=== PATIENT | male | born 1965 | race Caucasian/White ===

== ENCOUNTER 2016-09-11 19:04 | Inpatient (IN) | payer MEDICAID ==
[~2016-09-11] VITALS: Ht 182.9 cm; Wt 108.9 kg
[2016-09-11 19:08] VITALS: BP 103/46
[2016-09-11] MEDS ORDERED: ASPIRIN 325 MG TAB PO ONE (19:15)
--- NOTE | 2016-09-11 19:19 | NUR ---
AMBULATED TO ER BED 3
[2016-09-11] MEDS ORDERED: NACL 0.9% 250 ML IV ONE (19:50)
[2016-09-11] MEDS ORDERED: MORPHINE SULFATE 2 MG/ML SYR IVP ONE (19:50)
[2016-09-11] MEDS ORDERED: ONDANSETRON 4 MG/2 ML VIAL IVP ONE (19:50)
--- NOTE | 2016-09-11 19:52 | NUR ---
REPEAT EKG DONE AT BEDSIDE
--- NOTE | 2016-09-11 20:18 | NUR ---
PT RESTING COMFORTABLY AT THIS TIME. MEDS GIVEN, NO ACUTE DISTRESS AT THIS TIME.
--- NOTE | 2016-09-11 21:25 | NUR ---
ADMITTED 50 YEAR OLD MALE FROM ER. PT ARRIVED TO UNIT VIA GURNEY. PT AAOX4. PT STABLE. VS STABLE. PT HAS IV TO RIGHT AC G 20; ASYMPTOMATIC, PATENT AND INTACT. PT DENIES DISCOMFORT AT THIS TIME. ORIENTED PT TO ROOM AND SURROUNDINGS AND USE OF CALL LIGHT. EXPLAINED PLAN OF CARE TO PT AND HE VERBALIZES UNDERSTANDING. PT PLACED ON SAFETY PRECAUTIONS. WILL FOLLOW UP ON DOCTOR'S ORDERS. CALL LIGHT WITHIN REACH.
--- NOTE | 2016-09-11 21:31 | NUR ---
Patient will be admitted to care of DR SHAY. Admited to TELE. Will go to room 124. Belongings list completed. Report to SOURAV FELIX.
[2016-09-11] MEDS ORDERED: HYDROcodone/APAP 5/325 MG 1 TAB TAB PO PRN (22:25)
[2016-09-11] MEDS ORDERED: ONDANSETRON 4 MG/2 ML VIAL IVP PRN (22:25)
[2016-09-11] MEDS ORDERED: ACETAMINOPHEN 325 MG TAB PO PRN (22:25)
[2016-09-11] MEDS ORDERED: HEPARIN PER PHARMACY MC PRN (22:30)
[2016-09-11] MEDS: NACL 0.9% 1,000 ML IV SCH (23:03)
--- NOTE | 2016-09-11 23:10 | NUR ---
PT MEDICATED FOR PAIN, WILL CONTINUE TO MONITOR PT.
--- NOTE | 2016-09-11 23:25 | NUR ---
STATED HEPARIN ON PT ORDERED. PT STABLE, WILL CONTINUE TO MONITOR PT.
[2016-09-11] MEDS: hePARIN / DEXT 5% PREMIX 250 ML IV SCH (23:28)
[2016-09-12] VITALS: BP 112/71
--- NOTE | 2016-09-12 01:25 | NUR ---
PT TOLERATING HEPARIN WELL, PT STABLE. WILL CONTINUE TO MONITOR PT.
--- NOTE | 2016-09-12 03:21 | NUR ---
PT TALKING ON HIS CELL PHONE. PT STABLE, WILL CONTINUE TO MONITOR PT.
--- NOTE | 2016-09-12 03:48 | NUR ---
DISABILITY SPECIALIST AT BEDSIDE TO DRAW LABS. PT STABLE, WILL CONTINUE TO MONITOR PT.
[2016-09-12 04:00] VITALS: BP 137/110
--- NOTE | 2016-09-12 05:30 | NUR ---
PT WATCHING VIDEOS ON HIS CELL PHONE. PT JERRY WILL CONTINUE TO MONITOR PT.
--- NOTE | 2016-09-12 07:00 | NUR ---
CALL RESIDENT TO GET AN ORDER FOR DIET. DR. GRACIA ORDERED CARDIAC DIET FOR PT, WILL CONTINUE TO MONITOR.
--- NOTE | 2016-09-12 07:31 | NUR ---
ENDORSED PT IN STABLE CONDITION TO RN HOLLEY FOR CONTINUITY OF CARE.
--- NOTE | 2016-09-12 07:35 | NUR ---
RECEIVED REPORT FROM ELVIRA BENJAMIN FOR CONTINUITY OF CARE. PATIENT AWAKE ,A/OX4 NO S/S OF RESP DISTRESS NOTED . NO COMPLAIN OF CHEST PAIN AT THIS TIME. ABLE TO MAKE NEEDS KNOWN. IV SITE RIGHT FOREARM GAUGE 20 INTACT AND PATENT. IVF INFUSING WELL . PLAN OF CARE DISCUSSED WITH THE PATIENT VITALS STABLE WILL CONTINUE TO MONITOR.
[2016-09-12 08:00] VITALS: BP 111/73
--- NOTE | 2016-09-12 08:05 | NUR ---
APTT RESULT 67.8 PER HEPARIN PROTOCOL NO CHANGE ON THE RATE, WILL F/U WITH THE NEXT PTT.
--- NOTE | 2016-09-12 08:15 | NUR ---
PATIENT HAS BEEN SCREENED AND CATEGORIZED MODERATE NUTRITION RISK. PATIENT WILL BE SEEN WITHIN 3-5 DAYS OF ADMISSION. 09/14/16-09/16/[address]
[2016-09-12] MEDS: ECOTRIN 81 MG TABEC PO SCH (08:55)
[2016-09-12] MEDS: DOCUSATE SODIUM 100 MG GELCAP PO SCH (08:56)
[2016-09-12] MEDS: LISINOPRIL 10 MG TAB PO SCH (08:57)
[2016-09-12] MEDS ORDERED: METOPROLOL 25 MG TAB PO SCH (09:00)
--- NOTE | 2016-09-12 09:00 | NUR ---
DUE MEDS GIVEN TOLERATED WELL . PTT RESULT 67.8 NO CHANGE ON HEPARIN RATE PER HEPARIN PROTOCOL
--- NOTE | 2016-09-12 10:00 | NUR ---
CANCEL VQ SCAN PER MD BECAUSE OF CT CHEST ANGIO WITH IV CONTRAST
[2016-09-12] MEDS ORDERED: FUROSEMIDE 20 MG/2 ML VIAL IVP SCH (10:02)
[2016-09-12] MEDS: NACL 0.9% 1,000 ML IV SCH ×2 (10:52→14:19)
--- NOTE | 2016-09-12 11:00 | NUR ---
PATIENT LEFT FOR CT CHEST ANGIO STABLE CONDITION.
--- NOTE | 2016-09-12 11:30 | NUR ---
COMPLAIN OF CHEST PAIN MEDICATED WITH MORPHINE 2MG IVP
[2016-09-12] MEDS ORDERED: NITROGLYCERIN 0.4 MG TAB SL PRN (11:55)
[2016-09-12 11:59] VITALS: BP 99/66
[2016-09-12] MEDS: MORPHINE SULFATE 2 MG/ML SYR IVP PRN (12:05)
--- NOTE | 2016-09-12 12:41 | NUR ---
RECEIVED CRITICAL LAB VALUE PTT 59 .3 FOLLOW HEPARIN PROTOCOL ,NO CHANGE ON THE RATE. ANOTHER CRITICAL VALUE TROPONIN 0.167 IS TRENDING DOWN REPORTED TO DR GRACIA (RESIDENT)
--- NOTE | 2016-09-12 13:00 | NUR ---
VOIDED 250ML DARK KENN COLOR URINE , BLADDER SCANNER DONE POST VOID SHOWED 20ML
[2016-09-12] MEDS ORDERED: ALBUTEROL SULFATE/IPRATROPIU 3 ML SOL IH PRN (13:35)
[2016-09-12] MEDS ORDERED: DEXTROSE 50% 50 ML SYR IVP PRN (13:40)
[2016-09-12] MEDS: ALBUTEROL SULFATE/IPRATROPIU 3 ML SOL IH SCH ×2 (14:16→19:45)
--- NOTE | 2016-09-12 14:23 | NUR ---
PT IS UNABLE TO DO IS AT THIS TIME WILL TRY LATER
[2016-09-12] MEDS ORDERED: POTASSIUM CHLORIDE 10 MEQ TABER PO SCH (14:40)
[2016-09-12] MEDS: hePARIN / DEXT 5% PREMIX 250 ML IV SCH (15:03)
[2016-09-12 16:00] VITALS: BP 119/76
--- NOTE | 2016-09-12 16:24 | NUR ---
RELAXED , NO DISTRESS NOTED VITALS STABLE AT THIS TIME.
[2016-09-12] MEDS: BLOOD GLUCOSE MONITORING 1 DEV DEV FS SCH ×2 (17:24→20:47)
[2016-09-12] MEDS: INSULIN ASPART SLIDING SCALE 100 UNITS/ML VIAL SUBQ PRN ×2 (17:25→20:44)
[2016-09-12] MEDS: CARVEDILOL 3.125 MG TAB PO SCH (17:25)
--- NOTE | 2016-09-12 18:25 | NUR ---
BLOOD SUGAR 163 SLIDING SCALE COVERAGE 3 UNITS NOVOLOG GIVEN. HEPARIN DRIP RUNNING AT 16ML/HR.
--- NOTE | 2016-09-12 19:30 | NUR ---
RECEIVED REPORT FROM DAY NURSEHOLLEY. PATIENT RESTING IN BED, WATCHING TELEVISION. NO RESPIRATORY DISTRESS, SOB, OR DISCOMFORT. INITIAL ASSESSMENT AND BODY CHECK DONE. PATIENT IS AOX4, SKIN IS INTACT, RASHES NOTED TO BLE AND FOREHEAD. PATIENT HAS IV ACCESS TO RIGHT WRIST 22G, PATENT. PATIENT HAS HEPARIN DRIP INFUSING AT 1600 UNITS, PATIENT TOLERATING WELL, NO SIGNS OF ACTIVE BLEEDING. DISCUSSED PLAN OF CARE, MEDICATION REGIMENT, AND PAIN MANAGEMENT WITH PATIENT. PATIENT VERBALIZED UNDERSTANDING. PLACED PATIENT ON SAFETY PRECAUTIONS. CALL LIGHT LEFT WITHIN REACH, WILL CONTINUE TO MONITOR.
[2016-09-12 20:00] VITALS: BP 116/67
[2016-09-12] MEDS: SIMVASTATIN 20 MG TAB PO SCH (20:47)
[2016-09-12] MEDS: FUROSEMIDE 20 MG/2 ML VIAL IVP SCH (20:47)
[2016-09-12] MEDS: SODIUM CHLORIDE FLUSH 10 ML SYR IVF SCH (21:31)
--- NOTE | 2016-09-12 22:07 | NUR ---
PATIENT IN BED, WATCHING TELEVISION. STATES BEING FINE. NO RESPIRATORY DISTRESS, SOB, OR DISCOMFORT. CALL LIGHT LEFT WITHIN REACH, WILL CONTINUE TO MONITOR.
[2016-09-13] VITALS: BP 105/66
--- NOTE | 2016-09-13 00:51 | NUR ---
PATIENT IN BED, SLEEPING. NO RESPIRATORY DISTRESS, SOB, OR DISCOMFORT. CALL LIGHT LEFT WITHIN REACH, WILL CONTINUE TO MONITOR.
--- NOTE | 2016-09-13 03:12 | NUR ---
PATIENT ASLEEP. NO RESPIRATORY DISTRESS, SOB, OR DISCOMFORT. CALL LIGHT LEFT WITHIN REACH, WILL CONTINUE TO MONITOR.
[2016-09-13 04:00] VITALS: BP 112/69
[2016-09-13] MEDS: hePARIN / DEXT 5% PREMIX 250 ML IV SCH (04:58)
[2016-09-13] MEDS: SODIUM CHLORIDE FLUSH 10 ML SYR IVF SCH ×3 (05:42→21:02)
--- NOTE | 2016-09-13 06:04 | NUR ---
PATIENT SLEEPING. NO RESPIRATORY DISTRESS, SOB, OR DISCOMFORT. CALL LIGHT LEFT WITHIN REACH, WILL CONTINUE TO MONITOR.
[2016-09-13] MEDS: BLOOD GLUCOSE MONITORING 1 DEV DEV FS SCH ×4 (06:31→21:02)
[2016-09-13] MEDS: INSULIN ASPART SLIDING SCALE 100 UNITS/ML VIAL SUBQ PRN ×3 (06:32→20:59)
[2016-09-13] MEDS: ALBUTEROL SULFATE/IPRATROPIU 3 ML SOL IH SCH ×3 (07:05→19:57)
--- NOTE | 2016-09-13 07:09 | NUR ---
REPORT GIVEN TO DAY NURSE, TAMARA (ORIENTEE). PATIENT RESTING IN BED, STABLE. NO RESPIRATORY DISTRESS, SOB, OR DISCOMFORT. ALL NEEDS ATTENDED TO DURING SHIFT, CALL LIGHT LEFT WITHIN REACH.
--- NOTE | 2016-09-13 07:10 | NUR ---
RECEIVED PT FROM Jac MAHAN RN ASLEEP BUT EASILY AWAKEN. AAOX4, WITH IV ACCESS ON R WRIST 22G ON HEPARIN DRIP INFUSING WELL, SKIN INTACT, NO S/S OF RESPIRATORY DISTRESS NOTED. DISCUSSED PLAN OF CARE, PT VERBALIZED UNDERSTANDING. CALL LIGHT WITHIN REACH, WILL CONTINUE TO MONITOR.
[2016-09-13 08:00] VITALS: BP 105/78
[2016-09-13] MEDS: CARVEDILOL 3.125 MG TAB PO SCH ×2 (08:00→16:41)
[2016-09-13] MEDS: DOCUSATE SODIUM 100 MG GELCAP PO SCH (08:17)
[2016-09-13] MEDS: ECOTRIN 81 MG TABEC PO SCH (08:18)
--- NOTE | 2016-09-13 08:20 | NUR ---
BREAKFAST SERVED, PT HAS GOOD APPETITE. DUE MEDS GIVEN EXCEPT BP MEDS DUE TO DECREASED BP. PT TOLERATED WELL. CALL LIGHT WITHIN REACH, WILL CONTINUE TO MONITOR.
[2016-09-13] MEDS: FUROSEMIDE 20 MG/2 ML VIAL IVP SCH ×2 (08:21→21:05)
[2016-09-13] MEDS: SPIRONOLACTONE 25 MG TAB PO SCH (08:21)
[2016-09-13] MEDS: LISINOPRIL 10 MG TAB PO SCH (08:22)
[2016-09-13] MEDS ORDERED: FUROSEMIDE 20 MG/2 ML VIAL IVP SCH (09:00)
[2016-09-13] MEDS ORDERED: METOLAZONE 5 MG TAB PO SCH (09:00)
--- NOTE | 2016-09-13 09:50 | NUR ---
HEPARIN DRIP DISCONTINUED.
--- NOTE | 2016-09-13 11:30 | NUR ---
PT COMPLAINED OF CHEST PAIN 5/10. OFFERED PAIN MEDS BUT PT REFUSED.
[2016-09-13 12:00] VITALS: BP 128/87
--- NOTE | 2016-09-13 12:47 | NUR ---
PT SLEEPING BUT EASILY AWAKEN. DR ELIZALDE IN THE ROOM WITH THE PT. NO S/S OF DISTRESS. CALL LIGHT WITHIN REACH, WILL CONTINUE TO MONITOR. Addendum: 09/13/16 at 1249 by Manuela Aguilera RN INFORMED DR ELIZALDE OF PT CHEST PAIN AND REFUSAL OF PAIN MED.
--- NOTE | 2016-09-13 13:52 | NUR ---
PT ASLEEP BUT EASILY AWAKEN. ALL NEEDS MET AT THIS TIME, CALL LIGHT WITHIN REACH, WILL CONTINUE TO MONITOR.
--- NOTE | 2016-09-13 14:48 | NUR ---
DR GLEASON AT NURSES' STATION
[2016-09-13 16:00] VITALS: BP 112/48
--- NOTE | 2016-09-13 16:00 | NUR ---
VS TAKEN, REMAINS STABLE. PT STATED HE HAS CHEST PAIN BUT REFUSED PAIN MED, STATED "IT HAS ALWAYS BEEN LIKE THIS".
--- NOTE | 2016-09-13 16:48 | NUR ---
PT AWAKE LYING ON BED WATCHING TV WITH AT BEDSIDE. ALL NEEDS MET AT THIS TIME. CALL LIGHT WITHIN REACH, WILL CONTINUE TO MONITOR.
--- NOTE | 2016-09-13 18:19 | NUR ---
PT AWAKE LYING ON BED WATCHING TV. NO S/S OF DISTRESS NOTED. ALL NEEDS MET AT THIS TIME. CALL LIGHT WITHIN REACH, WILL CONTINUE TO MONITOR.
--- NOTE | 2016-09-13 18:50 | NUR ---
RIGHT WRIST IV OUT, INSERTED NEW IV ON RIGHT HAND 22G PATENT AND INTACT.
--- NOTE | 2016-09-13 19:20 | NUR ---
ENDORSED PT TO SOURAV CAREY IN STABLE CONDITION FOR CONTINUITY OF CARE.
--- NOTE | 2016-09-13 19:25 | NUR ---
RECEIVED PT FROM FERNANDEZ RN PT AAOX4 AMBULATORY IV TKO ON RT HAND INFUSING WELL ;, ON TELEMETRY SR BBB COMPLALINT OF CHEST PAIN MOD PAIN MEDIC WILL BE GIVEN , RELATIVES AT BED SIDE
[2016-09-13] MEDS: MORPHINE SULFATE 2 MG/ML SYR IVP PRN (19:30)
[2016-09-13 20:00] VITALS: BP 143/49
[2016-09-13] MEDS: SIMVASTATIN 20 MG TAB PO SCH (21:04)
--- NOTE | 2016-09-13 21:30 | NUR ---
BLOOD SUGAR TEST 185 COVERAGE WITH 3 UNITS REG INSULIN, HS SNACK IS GIVEN NOT DISTRESS NOTED
[2016-09-14] VITALS: BP 106/51
--- NOTE | 2016-09-14 | NUR ---
PT SLEEPING WELL NOT DISTRESS NOTED ON TELEMETRY SR BBB VOIDING WELL
--- NOTE | 2016-09-14 03:49 | NUR ---
SPONGE BATH GIVEN , LINEN CHANGED ON TELEMETRY SR BBB NOT DISTRESS NOTED,VOIDING WELL YELOW URINE
[2016-09-14 04:00] VITALS: BP 126/55
[2016-09-14] MEDS: SODIUM CHLORIDE FLUSH 10 ML SYR IVF SCH (05:57)
[2016-09-14] MEDS: BLOOD GLUCOSE MONITORING 1 DEV DEV FS SCH (06:06)
--- NOTE | 2016-09-14 06:07 | NUR ---
BLOOD SUGAR TEST 100 NOT COVERAGE PT REMAINSTABLE DENIES ANY PAIN OR DISCOMFORT ON TELMETRY SR BBB
--- NOTE | 2016-09-14 07:00 | NUR ---
PT ALERT AND ORIENTED X4. BREATHING EVENLY AND UNLABORED. NO SIGNS OF ACUTE DISTRESS. SKIN IS WARM AND DRY. NO SIGNS OF ANY BOWEL OR BLADDER DISCOMFORT. DENIES OF ANY PAIN OR DISCOMFORT. ALL NEEDS ATTENDED, SAFETY PRECAUTIONS MAINTAINED. CALL LIGHT WITHIN REACH.
[2016-09-14] MEDS ORDERED: FUROSEMIDE 40 MG/4 ML VIAL IVP SCH (07:22)
[2016-09-14] MEDS: ALBUTEROL SULFATE/IPRATROPIU 3 ML SOL IH SCH (07:31)
[2016-09-14 07:45] VITALS: BP 120/83
[2016-09-14] MEDS: CARVEDILOL 3.125 MG TAB PO SCH (08:26)
[2016-09-14] MEDS: LISINOPRIL 10 MG TAB PO SCH (08:26)
[2016-09-14] MEDS: SPIRONOLACTONE 25 MG TAB PO SCH (08:26)
[2016-09-14] MEDS: ECOTRIN 81 MG TABEC PO SCH (08:26)
[2016-09-14] MEDS: DOCUSATE SODIUM 100 MG GELCAP PO SCH (08:26)
[2016-09-14] MEDS ORDERED: LISINOPRIL10 M1 PO (10:05)
[2016-09-14] MEDS ORDERED: ASPIRIN ADULT L81 M2 PO (10:05)
[2016-09-14] MEDS ORDERED: SIMVASTATIN20 M1 PO (10:05)
[2016-09-14] MEDS ORDERED: ALDACTONE25 M1 PO (10:05)
[2016-09-14] MEDS ORDERED: CARVEDILOL3.125 MG PO (10:05)
[2016-09-14] MEDS ORDERED: LASIX10 MG/M2 PO (10:05)
[2016-09-14] MEDS ORDERED: HYDROcodone/APAP 7.5/325 MG 1 TAB PO SCH (10:24)
--- NOTE | 2016-09-14 11:10 | NUR ---
PT ALERT AND RESPONSIVE, NO SIGNS OF ACUTE DISTRESS. RECEIVED ORDER DECEMBER D/C HOME TODAY. EDUCATED TO F/U WITH PCP IN 1 WEEK. REVIEWED DISCHARGE PRESCRIPTIONS INCITATIONS AND SIDE EFFECTS. PT. VERBALIZED UNDERSTANDING. IV LINE, WRIST BAND AND TELE LEADS REMOVED. PERSONAL BELONGINGS WITH PT UPON DISCHARGE. WILL GO HOME VIA YELLOW CAB. ESCORTED TO FRONT LOBBY.
== END 2016-09-14 11:10 | disposition home or self-care (01) | DRG 190 ==
LOC: MED 19:04 → MTU 20:57
PROVIDERS: ADMIT Student in an Organized Health Care Education/Training Program; ATTEND Student in an Organized Health Care Education/Training Program
DX: I21.4 Non-ST elevation (NSTEMI) myocardial infarction (principal); N17.0 Acute kidney failure with tubular necrosis; I50.43 Acute on chronic combined systolic (congestive) and diastolic (congestive) heart failure; E44.0 Moderate protein-calorie malnutrition; E11.65 Type 2 diabetes mellitus with hyperglycemia; E87.1 Hypo-osmolality and hyponatremia; I42.9 Cardiomyopathy, unspecified; D68.69 Other thrombophilia; M94.0 Chondrocostal junction syndrome [Tietze]; E80.6 Other disorders of bilirubin metabolism; R74.0 Nonspecific elevation of levels of transaminase and lactic acid dehydrogenase [LDH]; E78.5 Hyperlipidemia, unspecified; E66.9 Obesity, unspecified; F19.10 Other psychoactive substance abuse, uncomplicated; E02 Subclinical iodine-deficiency hypothyroidism; E83.51 Hypocalcemia; Z71.51 Drug abuse counseling and surveillance of drug abuser; Z91.14 Patient's other noncompliance with medication regimen; Z68.32 Body mass index [BMI] 32.0-32.9, adult; Z98.890 Other specified postprocedural states; Z87.891 Personal history of nicotine dependence; Z80.9 Family history of malignant neoplasm, unspecified

== ENCOUNTER 2016-09-15 16:52 | Emergency (ER) | payer MEDICAID ==
[~2016-09-15] VITALS: Ht 177.8 cm; Wt 108.9 kg
[~2016-09-15 16:52] MED LIST: ALDACTONE25 M1 PO; ASPIRIN ADULT L81 M2 PO; CARVEDILOL3.125 MG PO; LASIX10 MG/M2 PO; LISINOPRIL10 M1 PO; SIMVASTATIN20 M1 PO
[2016-09-15 16:58] VITALS: BP 133/59
--- NOTE | 2016-09-15 17:14 | NUR ---
REVIEWED EKG OKAYED TO WAIT IN ER LOBBY FOR AVAILABLE BED----PT A/O X4 FULL CLEAR SPEECH, JOKING WITH STAFF---SKIN DRY PINK WARM TO TOUCH---DENIES SOB AT THIS TIME.
--- NOTE | 2016-09-15 19:25 | NUR ---
PATIENT LEFT WITHOUT BEING SEEN BY DR. TAN. NO FURTHER CARE PROVIDED FOR PATIENT.
== END 2016-09-15 19:25 | disposition left against medical advice (07) ==
LOC: MED 16:52
DX: R07.89 Other chest pain (principal); Z53.21 Procedure and treatment not carried out due to patient leaving prior to being seen by health care provider

== ENCOUNTER 2016-09-28 17:35 | Inpatient (IN) | payer MEDICAID ==
[~2016-09-28] VITALS: Ht 172.7 cm; Wt 108.4 kg
[2016-09-28 17:49] VITALS: BP 133/78
[2016-09-28] MEDS ORDERED: NACL 0.9% 1,000 ML IV ONE (17:50)
[2016-09-28] MEDS ORDERED: ASPIRIN 81 MG TAB.CHEW PO ONE (17:50)
--- NOTE | 2016-09-28 17:58 | NUR ---
PATIENT PRESENTS TO ED WITH LEFT SIDED CP . PT STATES PAIN X4 DAYS WORSE TODAY WITH SOB . DENIES N/V/D; SKIN IS PINK/WARM/DRY; AAOX4 WITH EVEN AND STEADY GAIT; LUNGS CLEAR BL; HR EVEN AND REGULAR; PT DENIES ANY FEVER,OR COUGH AT THIS TIME; PATIENT STATES PAIN OF 7/10 AT THIS TIME; VSS; PATIENT POSITIONED FOR COMFORT; HOB ELEVATED; BEDRAILS UP X2; BED DOWN. ER MD MADE AWARE OF PT STATUS. EKG COMPLETED, NOTIFIED--PT TO ROOM AND 02 2L NC PLACED---LABS DRAWN, PLACED ON MONITOR
[2016-09-28] MEDS ORDERED: MORPHINE SULFATE 2 MG/ML SYR IVP ONE (18:10)
[2016-09-28] MEDS ORDERED: AMIODARONE 150 MG in DEXTROSE 5% 100 ML IV ONE (18:10)
[2016-09-28] MEDS ORDERED: NITROGLYCERIN 2% 1 GM PKT TP ONE (18:10)
[2016-09-28] MEDS ORDERED: AMIODARONE 150 MG/3 ML VIAL IV ONE (18:21)
[2016-09-28] MEDS ORDERED: FUROSEMIDE 40 MG/4 ML VIAL IVP ONE (18:40)
--- NOTE | 2016-09-28 18:46 | NUR ---
PT CONTINUES TO HAVE ANTERIOR PRESSURE LIKE NON RADIAITNG PAIN 02/15. PT SLIGHTLY TACYPNIC AT 28BREATHS /MIN. SKIN WARM/DRY. PT WITH OCCASIONAL PVC'S. DR ARRIOLA INFORMED. AMIO BOLUS INFUSING THRU PUMP.
[2016-09-28] MEDS ORDERED: HYDROcodone/APAP 7.5/325 MG 1 TAB PO PRN (19:05)
[2016-09-28] MEDS ORDERED: NITROGLYCERIN 0.4 MG TAB SL PRN (19:05)
[2016-09-28] MEDS ORDERED: ONDANSETRON 4 MG/2 ML VIAL IVP PRN (19:05)
[2016-09-28] MEDS ORDERED: ACETAMINOPHEN 325 MG TAB PO PRN (19:05)
--- NOTE | 2016-09-28 19:13 | NUR ---
REPORT GIVEN TO EDWARD BENJAMIN. UPDATED ON STATUS, LABS AND VITALS.
--- NOTE | 2016-09-28 19:20 | NUR ---
Patient will be admitted to care of DR GROVER. Admited to TELEMETRY. Will go to room 119B. Belongings list completed. Report to SOURAV VANCE.
--- NOTE | 2016-09-28 19:38 | NUR ---
PT TRASFERRED TO TELEMTRY VIA [employer], AIRPLANE ELECTRICAL REPAIRER IN BED. ACCOMPANIED BY ASHVIN LA RN, AND CARRY EMT. PT IN O2 2LT.
[2016-09-28] MEDS: CARVEDILOL 3.125 MG TAB PO SCH (20:25)
[2016-09-28] MEDS: MORPHINE SULFATE 2 MG/ML SYR IVP PRN (20:26)
--- NOTE | 2016-09-28 20:45 | NUR ---
PM MEDS ADMINISTERED, PATIENT TOLERATED WELL, ADMINISTERED MORPHINE PER MD ORDER PT C/O CHEST PAIN, PT REFUSED NITRO TABLETS, STATED THEY GIVE HIM A HEADACHE. CALL LIGHT WITHIN REACH. WILL CONTINUE TO MONITOR.
--- NOTE | 2016-09-28 23:13 | NUR ---
ADMINISTERED NORCO PATIENT STILL COMPLAINING OF PAIN, ALSO ADMINISTERED NITRO STAT SL X2, PATIENT STATES HIS PAIN IS BETTER AND FEELS OKAY NOW, PATIENT IN GOOD SPIRITS, NO DISTRESS, CALL LIGHT WITHIN REACH. WILL CONTINUE TO MONITOR.
[2016-09-29] VITALS: BP 131/65
--- NOTE | 2016-09-29 00:10 | NUR ---
VITAL SIGNS STABLE, PATIENT STATES HIS PAIN HAS NOT GONE AWAY, WILL ADMINISTER MORPHINE PER MD ORDER. CALL LIGHT WITHIN REACH. WILL CONTINUE TO MONITOR.
[2016-09-29] MEDS: MORPHINE SULFATE 2 MG/ML SYR IVP PRN ×4 (00:36→23:35)
--- NOTE | 2016-09-29 02:00 | NUR ---
PATIENT SLEEPING, NO SOB OR SIGN OF DISTRESS, CALL LIGHT WITHIN REACH. WILL CONTINUE TO MONITOR.
--- NOTE | 2016-09-29 03:30 | NUR ---
PATIENT SLEEPING, NO SOB OR SIGN OF DISTRESS, CALL LIGHT WITHIN REACH. WILL CONTINUE TO MONITOR.
[2016-09-29 04:00] VITALS: BP 97/72
--- NOTE | 2016-09-29 04:30 | NUR ---
VITAL SIGNS STABLE, PATIENT RESTING IN BED, PATIENT DENIES PAIN AT THIS TIME, CALL LIGHT WITHIN REACH. WILL CONTINUE TO MONITOR.
--- NOTE | 2016-09-29 06:39 | NUR ---
PATIENT RESTING IN BED, NO SIGN OF DISTRESS, CALL LIGHT WITHIN REACH. WILL CONTINUE TO MONITOR
--- NOTE | 2016-09-29 07:15 | NUR ---
ENDORSED PATIENT TO DAY SHIFT RN AT BEDSIDE, PATIENT IN STABLE CONDITION
--- NOTE | 2016-09-29 07:20 | NUR ---
RECEIVED PATIENT REPORT. PATIENT AWAKE, ALERT, ORIENTED AND AMBULATORY. NO S/S OF DISTRESS NOTED. PATIENT REPORTS OF TOLERABLE CHEST PAIN AT THIS TIME. PATIENT ON 3L O2. NO SOB. PATIENT ON TELE MONITORING. BED LOWERED WITH CALL LIGHT WITHIN REACH. WILL CONTINUE TO MONITOR
[2016-09-29 08:00] VITALS: BP 143/90
[2016-09-29] MEDS: DOCUSATE SODIUM 100 MG GELCAP PO SCH (08:13)
[2016-09-29] MEDS: FAMOTIDINE 20 MG TAB PO SCH (08:13)
[2016-09-29] MEDS: CARVEDILOL 3.125 MG TAB PO SCH ×2 (08:13→20:23)
[2016-09-29] MEDS: SPIRONOLACTONE 25 MG TAB PO SCH (08:14)
--- NOTE | 2016-09-29 08:29 | NUR ---
PATIENT HAS BEEN SCREENED AND CATEGORIZED MODERATE NUTRITION RISK. PATIENT WILL BE SEEN WITHIN 3-5 DAYS OF ADMISSION. 10/01/16-10/03/[address]
[2016-09-29] MEDS ORDERED: ATORVASTATIN 20 MG TAB PO SCH (09:00)
[2016-09-29] MEDS ORDERED: LISINOPRIL 10 MG TAB PO SCH (09:00)
[2016-09-29] MEDS ORDERED: FUROSEMIDE 40 MG/4 ML VIAL IVP SCH (09:00)
[2016-09-29] MEDS ORDERED: ASPIRIN 81 MG TAB.CHEW PO SCH (09:00)
--- NOTE | 2016-09-29 11:00 | NUR ---
PATIENT IN BED, WATCHING TELEVISION. NO S/S OF DISTRESS NOTED
[2016-09-29 12:00] VITALS: BP 110/70
--- NOTE | 2016-09-29 14:00 | NUR ---
PATIENT ASLEEP IN BED. NO S/S OF DISTRESS NOTED
--- NOTE | 2016-09-29 15:00 | NUR ---
PATIENT SEEN BY DR NARAYAN. PATIENT INFORMED ABOUT THE ECHO RESULTS
[2016-09-29 16:00] VITALS: BP 112/67
--- NOTE | 2016-09-29 16:30 | NUR ---
PATIENT INSTRUCTED TO BE NPO AFTER MIDNIGHT FOR US OF THE ABD. PATIENT VERBALIZED UNDERSTANDING
[2016-09-29] MEDS ORDERED: AMIODARONE 200 MG TAB PO SCH (18:30)
--- NOTE | 2016-09-29 19:35 | NUR ---
ENDORSED CONTINUITY OF CARE TO THE NIGHT NURSE. PATIENT IN STABLE CONDITION
[2016-09-29 20:00] VITALS: BP 114/89
[2016-09-29] MEDS: FUROSEMIDE 40 MG/4 ML VIAL IVP SCH (20:24)
--- NOTE | 2016-09-29 20:43 | NUR ---
PM MEDS ADMINISTERED, PATIENT TOLERATED WELL, CALL LIGHT WITHIN REACH. WILL CONTINUE TO MONITOR.
--- NOTE | 2016-09-29 23:42 | NUR ---
PATIENT C/O PAIN. ADMINISTERED MORPHINE PER MD ORDER. WILL CONTINUE TO MONITOR.
[2016-09-30] VITALS: BP 123/68
--- NOTE | 2016-09-30 00:20 | NUR ---
VITAL SIGNS STABLE, NO SOB OR SIGN OF DISTRESS, PATIENT RESTING IN BED. PATIENT STATES HIS PAIN IS A LOT BETTER AND IT IS MANAGEABLE. REMOVED PATIENT'S FOOD AND DRINK PATIENT IS TO BE NPO AFTER MIDNIGHT FOR A COMPLETE ABDOMINAL ULTRASOUND IN THE AM. PATIENT AWARE. CALL LIGHT WITHIN REACH. WILL CONTINUE TO MONITOR.
--- NOTE | 2016-09-30 02:01 | NUR ---
PATIENT SLEEPING IN BED, NO SOB NOTED, CALL LIGHT WITHIN REACH. WILL CONTINUE TO MONITOR.
--- NOTE | 2016-09-30 03:35 | NUR ---
PATIENT SLEEPING, NO SOB OR SIGN OF DISTRESS, CALL LIGHT WITHIN REACH. WILL CONTINUE TO MONITOR.
[2016-09-30 04:00] VITALS: BP 98/59
--- NOTE | 2016-09-30 04:30 | NUR ---
VITAL SIGNS STABLE, PATIENT SITTING UP IN BED, CALL LIGHT WITHIN REACH. WILL CONTINUE TO MONITOR.
--- NOTE | 2016-09-30 06:16 | NUR ---
PATIENT RESTING IN BED, NO SOB OR SIGN OF DISTRESS, CALL LIGHT WITHIN REACH. WILL CONTINUE TO MONITOR.
[2016-09-30] MEDS ORDERED: LEVOTHYROXINE 0.05 MG TAB PO SCH (06:30)
[2016-09-30] MEDS: MORPHINE SULFATE 2 MG/ML SYR IVP PRN (06:51)
--- NOTE | 2016-09-30 07:20 | NUR ---
ENDORSED PATIENT TO DAY SHIFT RN AT BEDSIDE, PATIENT IN STABLE CONDITION, PATIENT RECEIVING ABDOMINAL US.
--- NOTE | 2016-09-30 07:30 | NUR ---
RECEIVED REPORT FROM STEAMBOAT CAPTAIN SOURAV VANCE. PT IS AWAKE, A/O X 4, AMBULATORY. RH 20G IV INTACT AND PATENT. O2 3L NC. PT HAS NO S/S OF ACUTE CARDIAC/RESPIRATORY DISTRESS OR DISCOMFORT. LBM 09/26/16. SAFETY MEASURES IN PLACE, CALL LIGHT WITHIN REACH. WILL CONTINUE PLAN OF CARE AND CONTINUE TO MONITOR.
[2016-09-30 07:37] VITALS: BP 95/61
[2016-09-30] MEDS ORDERED: CARVEDILOL 3.125 MG TAB PO SCH (08:00)
[2016-09-30] MEDS ORDERED: CALCIUM ACETATE 667 MG TAB PO SCH (08:00)
[2016-09-30] MEDS: SPIRONOLACTONE 25 MG TAB PO SCH (08:59)
[2016-09-30] MEDS ORDERED: AMIODARONE 200 MG TAB PO SCH ×2 (09:00)
[2016-09-30] MEDS ORDERED: LISINOPRIL 10 MG TAB PO SCH (09:00)
[2016-09-30] MEDS ORDERED: ECOTRIN 81 MG TABEC PO SCH (09:00)
[2016-09-30] MEDS: DOCUSATE SODIUM 100 MG GELCAP PO SCH (09:00)
[2016-09-30] MEDS: FAMOTIDINE 20 MG TAB PO SCH (09:00)
--- NOTE | 2016-09-30 09:00 | NUR ---
BP 114/62, HR 58. HELD CARVEDILOL AND LISINOPRIL DUE TO PARAMETERS.
[2016-09-30] MEDS: FUROSEMIDE 40 MG/4 ML VIAL IVP SCH (09:01)
--- NOTE | 2016-09-30 10:22 | NUR ---
PT IS AWAKE, RESTING IN BED SUPINE, JUST RETURNED FROM TAKING A SHOWER. NO S/S OF ACUTE DISTRESS OR DISCOMFORT. CALL LIGHT WITHIN REACH. WILL CONTINUE TO MONITOR.
[2016-09-30 12:00] VITALS: BP 92/66
--- NOTE | 2016-09-30 12:00 | NUR ---
PT IS AWAKE AND RESTING IN BED. NO S/S OF ACUTE DISTRESS OR DISCOMFORT. CALL LIGHT WITHIN REACH. WILL CONTINUE TO MONITOR.
[2016-09-30] MEDS ORDERED: SYNTHROID0.05 M1 PO (13:16)
[2016-09-30] MEDS ORDERED: CORDARONE200 M1 PO (13:16)
--- NOTE | 2016-09-30 14:30 | NUR ---
DISCHARGE INSTRUCTIONS PROVIDED TO PT, VERBALIZED UNDERSTANDING. PT SIGNED DISCHARGE PAPERWORK, PROVIDED A COPY. ARM BANDS REMOVED. IV REMOVED, INTACT. PT HAS NO S/S OF ACUTE DISTRESS OR DISCOMFORT. PT IN STABLE CONDITION. ESCORTED PT FRONT LOBBY TO BE PICKED UP BY FRIEND.
[2016-09-30] MEDS ORDERED: SIMVASTATIN 20 MG TAB PO SCH (21:00)
== END 2016-09-30 14:30 | disposition home or self-care (01) | DRG 203 ==
LOC: MED 17:35 → OBSVTOIN 18:58 → MTU 18:58 → INTOOBSV 18:58
PROVIDERS: ADMIT Family Medicine; ATTEND Family Medicine
DX: M94.0 Chondrocostal junction syndrome [Tietze] (principal); N17.0 Acute kidney failure with tubular necrosis; I50.43 Acute on chronic combined systolic (congestive) and diastolic (congestive) heart failure; E44.0 Moderate protein-calorie malnutrition; E83.39 Other disorders of phosphorus metabolism; I42.9 Cardiomyopathy, unspecified; E83.51 Hypocalcemia; K76.0 Fatty (change of) liver, not elsewhere classified; E66.9 Obesity, unspecified; E78.5 Hyperlipidemia, unspecified; I11.0 Hypertensive heart disease with heart failure; E80.6 Other disorders of bilirubin metabolism; E02 Subclinical iodine-deficiency hypothyroidism; F15.10 Other stimulant abuse, uncomplicated; Z71.3 Dietary counseling and surveillance; Z87.891 Personal history of nicotine dependence; Z91.19 Patient's noncompliance with other medical treatment and regimen; Z91.14 Patient's other noncompliance with medication regimen; Z79.82 Long term (current) use of aspirin; Z79.899 Other long term (current) drug therapy; Z68.36 Body mass index [BMI] 36.0-36.9, adult

== ENCOUNTER 2018-07-11 18:37 | Inpatient (IN) | payer MEDICAID ==
[~2018-07-11] VITALS: Ht 182.9 cm; Wt 122.5 kg
[~2018-07-11 18:37] MED LIST changes: -ALDACTONE25 M1 PO; +AMIO200T PO; +ASPI-1173 PO; -ASPIRIN ADULT L81 M2 PO; +CARV3.122 PO; -CARVEDILOL3.125 MG PO; +LAS20I PO; -LASIX10 MG/M2 PO; +LISI10TA11 PO; -LISINOPRIL10 M1 PO; +SIMV20TA6 PO; -SIMVASTATIN20 M1 PO; +SPIR25TA PO; +SYN.05 PO
--- NOTE | 2018-07-11 18:47 | NUR ---
PT BIB WHEELCHAIR TO ER BED 2
[2018-07-11 18:50] VITALS: BP 123/90
--- NOTE | 2018-07-11 19:02 | NUR ---
DR. PINA MADE AWARE OF PTS STATUS.
--- NOTE | 2018-07-11 19:03 | NUR ---
Patient being evaluated by physician at bedside.
--- NOTE | 2018-07-11 19:07 | NUR ---
52 Y/O C/O NON RADIATING CP, SOB, [place] RASH ON THE ABDOMEN X 3 DAYS AFTER TAKING POTASSIUM 3 DAYS AGO; HAS NOT BEEN TAKING HIS MEDS SINCE; INCREASE SOB, CP, WOB, HR ON AMBULATION. PT DENIES N/V/D; AAOX4, PERRL, WITH EVEN AND STEADY GAIT; LUNGS CLEAR BL. HR EVEN AND REGULAR, BL PERIPHERAL PULSES PRESENT; BS ACTIVE X4; PT DENIES ANY FEVER. STATES 9/10 PAIN AT THIS TIME; VSS; PATIENT POSITIONED FOR COMFORT; HOB ELEVATED; BEDRAILS UP X2; BED DOWN.
[2018-07-11] MEDS ORDERED: NITROGLYCERIN 0.4 MG TAB SL ONE (19:10)
--- NOTE | 2018-07-11 19:10 | NUR ---
REPORT GIVEN TO STEPHANIA BENJAMIN.
--- NOTE | 2018-07-11 19:17 | NUR ---
NITRO GIVEN AT THIS TIME. WILL RE ASSESS IN 5 MINS.
--- NOTE | 2018-07-11 19:22 | NUR ---
PT CHEST PAIN STILL 7/10 AT THIS TIME, 2ND NITRO GIVEN.
--- NOTE | 2018-07-11 19:30 | NUR ---
PTS CHEST PAIN STILL 5/10 AT THIS TIME. PT REFUSES ANOTHER NITRO. B/P 128/[address] PINA MADE AWARE.
[2018-07-11 19:42] LABS: BASOPHILS # (AUTO) 0.1 K/uL (0.00-0.22); BASOPHILS % (AUTO) 0.6 % (0.0-2.0); EOSINOPHILS % (AUTO) 0.4 % (0.0-4.0); HEMATOCRIT 51.6 % (36-52); HEMOGLOBIN 16.6 g/dL (12.0-18.0); LYMPHOCYTES # (AUTO) 1.6 K/uL (2.0-11.5); LYMPHOCYTES % (AUTO) 17.9 % (20.5-51.1); MEAN CORPUSCULAR HEMOGLOBIN 30 pg (27-31); MEAN CORPUSCULAR HGB CONC 32 g/dL (33-37); MEAN CORPUSCULAR VOLUME 93.7 fL (80-94); MONOCYTES % (AUTO) 10.6 % (1.7-9.3); NEUTROPHILS # (AUTO) 6.4 K/uL (1.8-7.7); NEUTROPHILS % (AUTO) 70.5 % (42.2-75.2); PLATELET COUNT (AUTO) 179 K/uL (140-450); RED CELL DISTRIBUTION WIDTH 15.6 % (11.6-13.7); WHITE BLOOD COUNT (AUTO) 9.1 K/uL (4.8-10.8)
--- NOTE | 2018-07-11 20:00 | NUR ---
PT HAS EYES CLOSED, AROUSABLE PT DENIES PAIN @ THIS TIME, VSS WILL CONTINUE TO OBSERVE.
[2018-07-11 20:13] LABS: ANION GAP 21.7 (8-16); CARBON DIOXIDE 22.8 mmol/L (21-32); CREATININE 1.8 mg/dL (0.7-1.3); POTASSIUM 4.5 mmol/L (3.5-5.1)
[2018-07-11 20:20] LABS: ALBUMIN 3.6 g/dL (3.4-5.0); TOTAL BILIRUBIN 5.6 mg/dL (0.0-1.0)
[2018-07-11 21:11] LABS: CREATINE KINASE MB 3.1 ng/mL (0-3.6)
[2018-07-11] MEDS ORDERED: ASPIRIN 325 MG TAB PO ONE (21:35)
[2018-07-11] MEDS ORDERED: ONDANSETRON 4 MG/2 ML VIAL IM/IVP PRN (21:45)
[2018-07-11] MEDS ORDERED: DOCUSATE SODIUM 100 MG GELCAP PO PRN (21:45)
[2018-07-11] MEDS ORDERED: ACETAMINOPHEN 325 MG TAB PO PRN (21:45)
[2018-07-11] MEDS ORDERED: HYDROcodone/APAP 7.5/325 MG 1 TAB PO PRN (21:45)
[2018-07-11] MEDS ORDERED: MORPHINE SULFATE 2 MG/ML SYR IVP PRN (21:45)
--- NOTE | 2018-07-11 22:00 | NUR ---
PT DENIES CP @ THIS TIME, VSS. NO ACUTE DISTRESS. WILL CONTINUE TO MONITOR.
[2018-07-11] MEDS ORDERED: POTA10TE30 PO ×2 (22:10→23:24)
[2018-07-11] MEDS ORDERED: BENA5TAB PO (22:10)
--- NOTE | 2018-07-11 22:35 | NUR ---
PT ARRIVED ON UNIT VIA RNEY WITH R NURSE. PT ABLE TO AMBULATE FROM REVANGELINE INTO BED. PT IS AAOX4. PT IS ON RA WITH SOME SOB UPON WALKING. IV ACCESS IN L AC 22G, SALINE LOCKED. PT SKIN IS INTACT WITH RASH NOTED ACROSS ENTIRE ABDOMEN. PICTURE TAKEN AND PLACED IN CHART. PT IS C/O HEADACHE, WILL MEDICATE. MRSA SWAB COLLECTED. ORIENTED PT TO ROOM AND USE OF CALL LIGHT. BED IS LOCKED, LOW POSITION WITH SIDE RAILS UP X2. BOARD UPDATED. CALL LIGHT IS WITHIN REACH. WILL CONTINUE TO MONITOR.
[2018-07-11 22:39] LABS: CHOL/HDL RATIO 6.6 (1-4.5); FREE T4 (FREE THYROXINE) 1.33 ng/dL (0.76-1.46); MAGNESIUM 2.3 mg/dL (1.8-2.4); PHOSPHORUS 3.6 mg/dL (2.5-4.9); THYROID STIMULATING HORMONE 5.97 uIU/mL (0.34-3.74)
[2018-07-11] MEDS ORDERED: hePARIN / DEXT 5% PREMIX 250 ML IV SCH ×2 (22:40)
[2018-07-11] MEDS ORDERED: HEPARIN PER PHARMACY MC PRN (22:40)
--- NOTE | 2018-07-11 22:45 | NUR ---
Patient will be admitted to care of . Admited to [facility] Belongings list completed. Report to DENNY BENJAMIN.
[2018-07-11 22:52] LABS: PROTHROMBIN TIME 20.8 secs (10.8-13.4)
[2018-07-11] MEDS ORDERED: FUROSEMIDE 20 MG/2 ML VIAL IVP SCH (23:00)
--- NOTE | 2018-07-11 23:04 | NUR ---
ADMINISTERED SCHEDULED MEDICATION. PT C/O HEADACHE, TYLENOL GIVEN. PT TOLERATED WELL. NO S/SX OF DISTRESS. WILL CONTINUE TO MONITOR.
[2018-07-11] MEDS ORDERED: BENA20TA PO (23:24)
[2018-07-11] MEDS ORDERED: ATOR40TA PO (23:24)
[2018-07-11] MEDS ORDERED: FURO-572 PO (23:24)
[2018-07-11] MEDS ORDERED: NITROGLYCERIN 0.4 MG TAB SL PRN (23:40)
[2018-07-12] VITALS: BP 126/67
--- NOTE | 2018-07-12 00:09 | NUR ---
SPOKE WITH PHARMACY D/T INCORRECT WEIGHT ENTERED ON HEPARIN PROTOCOL. PHARMACY WILL NOTIFY ME ONCE FIXED AND HEPARIN DRIP WILL THEN BE STARTED.
--- NOTE | 2018-07-12 00:31 | NUR ---
SPOKE WITH DYLAN FROM PHARMACY SAYS ENTERED BODY WEIGHT ON HEPARIN PROTOCOL IS OKAY AND TO BEGIN HEPARIN DRIP PER PROTOCOL.
[2018-07-12] MEDS: hePARIN / DEXT 5% PREMIX 250 ML IV SCH ×2 (00:50→10:45)
--- NOTE | 2018-07-12 00:50 | NUR ---
HEPARIN DRIP STARTED PER PROTOCOL. PT RESTING COMFORTABLY IN BED. NO S/SX OF DISTRESS. WILL CONTINUE TO MONITOR.
--- NOTE | 2018-07-12 01:10 | NUR ---
URINE SAMPLE COLLECTED AND TAKEN TO LAB.
[2018-07-12] MEDS ORDERED: INFLUENZA VIRUS VACCINE QUAD 0.5 ML SYR IMVAC PRN (01:35)
[2018-07-12] MEDS ORDERED: PNEUMOCOCCAL VACCINE 23 MCG/0.5 ML VIAL IMVAC SCH (01:35)
[2018-07-12 02:49] LABS: BARBITURATE, URINE NEG. ng/ml (NEG <=200); BENZODIAZEPINE, URINE NEG. ng/mL (NEG <=200); CANNABINOID, URINE NEG. ng/mL (NEG <=50); COCAINE, URINE NEG. ng/mL (NEG <=300); OPIATE, URINE NEG. ng/mL (NEG <=2000); PHENCYCLIDINE SCREEN,URINE NEG. ng/mL (NEG <=25)
[2018-07-12 03:01] LABS: APPEARANCE,URINE CLEAR (CLEAR); BLOOD, URINE NEGATIVE (NEGATIVE); COLOR,URINE YELLOW (YELLOW); LEUKOCYTE ESTERASE ,URINE NEGATIVE (NEGATIVE); NITRITE, URINE NEGATIVE (NEGATIVE); PH,URINE 5.5 (5.0-9.0); UGLUCOSE NEGATIVE (NEGATIVE)
[2018-07-12 03:02] LABS: BILIRUBIN,URINE NEGATIVE (NEGATIVE)
--- NOTE | 2018-07-12 03:20 | NUR ---
HISTOPATH TECH AT BEDSIDE DRAWING LABS.
[2018-07-12 03:49] LABS: ANION GAP 20.3 (8-16); CARBON DIOXIDE 21.4 mmol/L (21-32); CREATININE 1.5 mg/dL (0.7-1.3); POTASSIUM 4.7 mmol/L (3.5-5.1)
[2018-07-12 04:00] VITALS: BP 109/82
[2018-07-12 04:11] LABS: BASOPHILS % (AUTO) 0.2 % (0.0-2.0); EOSINOPHILS % (AUTO) 0.2 % (0.0-4.0); HEMOGLOBIN 15.7 g/dL (12.0-18.0); LYMPHOCYTES # (AUTO) 1.4 K/uL (2.0-11.5); MEAN CORPUSCULAR HEMOGLOBIN 30 pg (27-31); MEAN CORPUSCULAR HGB CONC 33 g/dL (33-37); MEAN CORPUSCULAR VOLUME 91.9 fL (80-94); MONOCYTES # (AUTO) 0.8 K/uL (0.8-1.0); MONOCYTES % (AUTO) 10.2 % (1.7-9.3); NEUTROPHILS # (AUTO) 5.9 K/uL (1.8-7.7); NEUTROPHILS % (AUTO) 72.4 % (42.2-75.2); PLATELET COUNT (AUTO) 152 K/uL (140-450); RED BLOOD CELL COUNT(AUTO) 5.22 MIL/uL (4.20-6.10); RED CELL DISTRIBUTION WIDTH 15.3 % (11.6-13.7); WHITE BLOOD COUNT (AUTO) 8.2 K/uL (4.8-10.8)
--- NOTE | 2018-07-12 04:19 | NUR ---
LAB CALLED WITH CRITICAL TROPONIN VALUE OF 0.072. TRENDING DOWN.
--- NOTE | 2018-07-12 07:21 | NUR ---
SPOKE WITH TAVARES FROM LAB, WILL COME TO DRAW PTT. ENDORSED PT TO DAY SHIFT NURSE FOR CONTINUITY OF CARE. PT IN STABLE CONDITION.
--- NOTE | 2018-07-12 07:22 | NUR ---
RECEIVED BEDSIDE REPORT FROM [employer] ANALYST NURSE. PATIENT AAOX4. PATIENT RETURNED FROM ABD CT IN STABLE CONDITION. TELE MONITOR PLACED BACK ON. HEPARIN DRIP RECONNECTED AT 10 ML/HR. IV CLEAN DRY INTACT ON L AC 18 G. PATIENT AMBULATORY. SKIN INTACT, EXCEPT RASH ON ABDOMEN. NPO EXCEPT FOR MEDS. SCDS IN PLACE. NO COMPLAINTS AT THIS TIME. NO RESPIRATORY DISTRESS ON ROOM AIR. WILL CONTINUE TO MONITOR. BED IN LOWEST POSITION, CALL LIGHT WITHIN REACH.
[2018-07-12] MEDS: DEXT 5% / NACL 0.9% 500 ML IV SCH ×2 (07:55→22:10)
[2018-07-12 08:00] VITALS: BP 127/93
[2018-07-12] MEDS: CARVEDILOL 3.125 MG TAB PO SCH ×2 (08:00→17:43)
--- NOTE | 2018-07-12 08:33 | NUR ---
PATIENT HAS BEEN SCREENED AND CATEGORIZED MODERATE NUTRITION RISK. PATIENT WILL BE SEEN WITHIN 3-5 DAYS OF ADMISSION. 07/14/18 07/16/[address]
[2018-07-12] MEDS: ASPIRIN 81 MG TAB.CHEW PO SCH (09:16)
[2018-07-12] MEDS: SPIRONOLACTONE 25 MG TAB PO SCH (09:16)
[2018-07-12] MEDS: FUROSEMIDE 40 MG TAB PO SCH ×2 (09:16→17:43)
--- NOTE | 2018-07-12 09:32 | NUR ---
ADMINISTERED MEDS. PATIENT TOLERATED WELL. NEW IV INSERTED ON R WRIST 22 G INFUSING D5 NS AT 40. EDUCATED PATIENT ON NPO STATUS. PATIENT REQUESTING JELLO, BUT TOLD HIM ICE CHIPS ONLY. PATIENT VERBALIZED UNDERSTANDING. WILL CONTINUE TO MONITOR.
--- NOTE | 2018-07-12 10:45 | NUR ---
ADMINISTERED HEPARIN BOLUS AT 3000 U AND INCREASED HEPARIN DRIP BY 2 ML, NOW INFUSING AT 12 ML/HR. NEW PTT LEVEL ORDERED AT 1645. PATIENT FEELS SHORTNESS OF BREATH. RT GAVE [address] AT BEDSIDE. O2 SAT AT 98% AT THIS TIME. WILL CONTINUE TO MONITOR. PATIENT WANTS MEDS TO HELP SLEEP DUE TO ANXIETY. WILL CHECK MEDS.
--- NOTE | 2018-07-12 10:46 | NUR ---
CALLED TO PTS ROOM FOR SOB, PTS O2 SAT ON ROOM AIR 96% PT STATES THAT HE IS HAVING CHEST PAIN, PLACED PT ON 2LNC AND TALKED TO DR. FAIRBANKS CONCERNING PT KEEP PT ON THE OXYGEN OF 2LNC
[2018-07-12] MEDS ORDERED: BISACODYL 10 MG SUPP RC SCH (11:00)
--- NOTE | 2018-07-12 11:05 | NUR ---
ADMINISTERED ORDERED SUPP. PATIENT TOLERATED WELL. NO SIGNS OF DISTRESS. WILL CONTINUE TO MONITOR THE PATIENT
[2018-07-12 12:00] VITALS: BP 116/72
--- NOTE | 2018-07-12 12:38 | NUR ---
PATIENT SITTING IN BED. NO SIGNS OF DISTRESS. WILL CONTINUE TO MONITOR THE PATIENT
--- NOTE | 2018-07-12 13:34 | NUR ---
PATIENT DISCONNECTED FROM IV'S TO USE THE RESTROOM. PATIENT IN RESTROOM. WILL CONNECT PATIENT BACK WHEN BACK FROM THE RESTROOM
--- NOTE | 2018-07-12 13:45 | NUR ---
PATIENT HAD A BM. CONNECTED BACK TO IVS AND OXYGEN. PATIENT BACK IN BED IN STABLE CONDITION
--- NOTE | 2018-07-12 15:14 | NUR ---
PATIENT REQUESTED TO TAKE A SHOWER. DR ORDERED TO STOP HEPARIN DRIP WHILE HE TAKES A SHOWER. COVERED BOTH IV SITES. PATIENT IN SHOWER. EDUCATED CALL LIGHT IN SHOWER. TELE MONITOR REMOVED. WILL CONTINUE TO MONITOR.
[2018-07-12 16:00] VITALS: BP 126/95
--- NOTE | 2018-07-12 16:00 | NUR ---
PATIENT DONE WITH SHOWER. PATIENT HAS SOB. WHEELCHAIRED TO ROOM. CONNECTED TO 2 L O2 NC. PATIENT TOLERATING WELL. O2 SAT AT 96%. WILL CONTINUE TO MONITOR.
--- NOTE | 2018-07-12 17:14 | NUR ---
CALLED TO PTS ROOM FOR LOW O2 SAT PT IS ON 2LNC AND O2 SAT WAS 97% PT IS HOLDING HIS BREATH AND COMPLAINS OF PAIN SOURAV URIOSTEGUI AT BEDSIDE. TALKED TO DR. GILBERT CONCERNING PT. HE WILL ORDER MEDS FOR AGATION .
[2018-07-12] MEDS ORDERED: LORazepam 2 MG/ML VIAL IM/IVP SCH (17:30)
--- NOTE | 2018-07-12 17:37 | NUR ---
PATIENT IS ON 3 L NC. NO SIGNS OF DISTRESS. WILL CONTINUE TO MONITOR.
--- NOTE | 2018-07-12 17:51 | NUR ---
ADMINISTERED MEDS. ADMINISTERED ATIVAN FOR ANXIETY. DR. BARAHONA AT BEDSIDE. WILL CONTINUE TO MONITOR.
--- NOTE | 2018-07-12 19:00 | NUR ---
GAVE BEDSIDE REPORT TO [employer] SET UP OPERATOR NURSE. ENDORSED PATIENT IN STABLE CONDITION.
--- NOTE | 2018-07-12 19:00 | NUR ---
RECEIVED REPORT FROM DAY SHIFT NURSE AT PT BEDSIDE. PT IN STABLE CONDITION. PT IS AAOX4. PT IS ON NC 3L BREATHING IS LABORED AND PT HAVING SOME SOB. IV ACCESS IN L AC 22G, SALINE LOCKED AND R WRIST 24G WITH IVF RUNNING PER MD ORDERS. IVS ARE PATENT AND INTACT. PT SKIN IS INTACT WITH RASH NOTED ACROSS ENTIRE ABDOMEN. BED IS LOCKED, LOW POSITION WITH SIDE RAILS UP X2. BOARD UPDATED. CALL LIGHT IS WITHIN REACH. WILL CONTINUE TO MONITOR.
[2018-07-12 20:00] VITALS: BP 117/77
[2018-07-12] MEDS ORDERED: ATORVASTATIN 20 MG TAB PO SCH (21:00)
--- NOTE | 2018-07-12 21:33 | NUR ---
PT O2 SAT RANGING FROM 85-98% SPOKE WITH DR. RUBALCAVA AND BIPAP ORDERED. CALLED RT AND WILL BE TO UNIT TO APPLY BIPAP. PULSE OX ON PT AND CONTINUING TO MONITOR.
[2018-07-12] MEDS ORDERED: ZOLPIDEM 5 MG TAB PO PRN (21:35)
--- NOTE | 2018-07-12 21:48 | NUR ---
AMBIEN GIVEN FOR SLEEP. RT AT BEDSIDE APPLYING BIPAP MACHINE. PT TOLERATING WELL. PULSE OX MONITOR APPLIED AND WILL CONTINUE TO MONITOR PT.
[2018-07-12] MEDS ORDERED: APIXABAN 2.5 MG TAB PO SCH (22:05)
--- NOTE | 2018-07-12 23:04 | NUR ---
PT IS NO SLEEPING COMFORTABLY IN BED WITH BIPAP ON. O2 SAT 99%. NO S/SX OF DISTRESS. WILL CONTINUE TO MONITOR.
--- NOTE | 2018-07-12 23:33 | NUR ---
BIPAP CAME OFF WHEN PT TURNED IN SLEEP. CALLED RT WILL COME TO FIX BIPAP.
[2018-07-13] VITALS: BP 103/73
--- NOTE | 2018-07-13 00:42 | NUR ---
PT TOOK OFF BIPAP MASK AND IS REQUESTING WATER. GAVE PT SOME WATER AND PT BIPAP MASK BACK ON. PT HAS NO S/SX OF DISTRESS. WILL CONTINUE TO MONITOR.
--- NOTE | 2018-07-13 01:59 | NUR ---
PT REMOVED BIPAP AND DOES NOT WANT IT ON AT THIS TIME. PT HAS NO SIGNS OR SYMPTOMS OF DISTRESS. AT THIS TIME. WILL CONTINUE TO MONITOR.
--- NOTE | 2018-07-13 02:28 | NUR ---
PT IS BACK ON BIPAP.
--- NOTE | 2018-07-13 03:02 | NUR ---
PT HAS REMOVED BIPAP AND REFUSES TO PUT BACK ON AT THIS TIME. PT CURRENTLY SHOWING NO SIGNS OR SYMPTOMS OF DISTRESS. WILL CONTINUE TO MONITOR.
--- NOTE | 2018-07-13 03:45 | NUR ---
PT BACK ON BIPAP.
[2018-07-13 04:00] VITALS: BP 117/73
--- NOTE | 2018-07-13 05:06 | NUR ---
PT IS ASLEEP IN BED. NO S/SX OF DISTRESS. WILL CONTINUE TO MONITOR.
--- NOTE | 2018-07-13 05:58 | NUR ---
PT HAS REMOVED BIPAP AND DOES NOT WISH TO WEAR IT AT THIS TIME. NO S/SX OF DISTRESS. WILL CONTINUE TO MONITOR.
--- NOTE | 2018-07-13 06:30 | NUR ---
PT BACK ON BIPAP.
[2018-07-13 06:42] LABS: BASOPHILS % (AUTO) 0.1 % (0.0-2.0); EOSINOPHILS # (AUTO) 0.1 K/uL (0-0.4); HEMATOCRIT 47.7 % (36-52); HEMOGLOBIN 15.4 g/dL (12.0-18.0); LYMPHOCYTES # (AUTO) 1.2 K/uL (2.0-11.5); LYMPHOCYTES % (AUTO) 16.8 % (20.5-51.1); MEAN CORPUSCULAR HEMOGLOBIN 30 pg (27-31); MEAN CORPUSCULAR HGB CONC 32 g/dL (33-37); MEAN CORPUSCULAR VOLUME 92.9 fL (80-94); MONOCYTES # (AUTO) 0.6 K/uL (0.8-1.0); MONOCYTES % (AUTO) 7.9 % (1.7-9.3); NEUTROPHILS # (AUTO) 5.4 K/uL (1.8-7.7); NEUTROPHILS % (AUTO) 74.2 % (42.2-75.2); PLATELET COUNT (AUTO) 138 K/uL (140-450); RED BLOOD CELL COUNT(AUTO) 5.14 MIL/uL (4.20-6.10); WHITE BLOOD COUNT (AUTO) 7.3 K/uL (4.8-10.8)
--- NOTE | 2018-07-13 06:54 | NUR ---
RECEIVED PT ON AN V60 ON DOCUMENTED SETTINGS ALARMS ARE ON AND FUNCTIONAL PT IN LATERAL FOWLERS ASLEEP WEARING F\F MASK SIZE LG BS CL\DIM BIPAP PLUGGED INTO RED OUTLET CONT. POX IN PLACE
[2018-07-13 07:18] LABS: CREATININE 1.4 mg/dL (0.7-1.3)
[2018-07-13 07:24] LABS: POTASSIUM 4.6 mmol/L (3.5-5.1)
--- NOTE | 2018-07-13 07:26 | NUR ---
ENDORSED PT TO DAY SHIFT NURSE FOR CONTINUITY OF CARE. PT IN STABLE CONDITION.
--- NOTE | 2018-07-13 07:27 | NUR ---
RECEIVED BEDSIDE REPORT FROM SPECIAL POLICE OFFICER NURSE. PATIENT AAOX4. NO RESPIRATORY DISTRESS NOTED, ON 3 L NC O2 OF 94%. SPO2 MONITOR IN PLACE. BIPAP MACHINE AT BEDSIDE. L AC 18 G INFUSING NS AT 10 AND R WRIST 24G. SKIN INTACT. BED IN LOW POSITION, CALL LIGHT WITHIN REACH. WILL CONTINUE TO MONITOR. Addendum: 07/13/18 at 1140 by Jacklyn Stubbs RN L AC 18G SALINE LOCK. CLEAN, DRY AND INTACT. R WRIST 24G INFUSING NS AT 10. CLEAN, DRY AND INTACT. ABDOMEN RASH. PATIENT IS CONTINENT. URINAL AT BEDSIDE. (ADDITION TO MORNING ASSESSMENT)
[2018-07-13 07:28] LABS: ANION GAP 17.7 (8-16); CARBON DIOXIDE 22.9 mmol/L (21-32)
--- NOTE | 2018-07-13 07:38 | NUR ---
TWO ATTEMPTS FOR ABG WERE MADE UNABLE TO GET PT WANTED RT FLOR RADER TO STOP FOR NOW I EXPLAINED I WOULD BE BACK LATER TO RETRY
[2018-07-13 08:00] VITALS: BP 112/87
[2018-07-13 08:41] LABS: T4 (THYROXINE) 7.4 ug/dL (4.5-12.0)
[2018-07-13 08:41] LABS: HEPATITIS A ANTIBODY IGM Negative (Negative); HEPATITIS B CORE AB TOTAL Negative (Negative); HEPATITIS B SURFACE ANTIBODY Non Reactive (.); HEPATITIS B SURFACE ANTIGEN Negative (Negative)
--- NOTE | 2018-07-13 09:06 | NUR ---
PT REFUSES BIPAP AT THIS TIME 3L N\C IN PLACE
[2018-07-13] MEDS: FUROSEMIDE 40 MG TAB PO SCH ×2 (09:12→17:00)
[2018-07-13] MEDS: ASPIRIN 81 MG TAB.CHEW PO SCH (09:12)
[2018-07-13] MEDS: BENAZEPRIL 5 MG TAB PO SCH (09:13)
[2018-07-13] MEDS: SPIRONOLACTONE 25 MG TAB PO SCH (09:13)
[2018-07-13] MEDS: CARVEDILOL 3.125 MG TAB PO SCH ×2 (09:13→17:00)
[2018-07-13] MEDS: APIXABAN 2.5 MG TAB PO SCH ×2 (09:16→22:33)
--- NOTE | 2018-07-13 09:18 | NUR ---
ADMINISTERED SCHEDULED MEDS. PATIENT TOLERATED WELL. CALLED DR FOR PLT OF 138 IF OKAY TO GIVE ELIQUIS. DR SAID IT WAS OK TO ADMINISTER AT THIS TIME. WILL CONTINUE TO MONITOR.
--- NOTE | 2018-07-13 10:00 | NUR ---
PATIENT IS SLEEPING. NC AT 3 L. WILL CONTINUE TO MONITOR.
--- NOTE | 2018-07-13 11:33 | NUR ---
PATIENT SITTING UP IN BED. PATIENT ON BIPAP MACHINE. O2 AT 99%. WILL CONTINUE TO MONITOR.
--- NOTE | 2018-07-13 11:37 | NUR ---
L AC 18G SALINE LOCK. CLEAN, DRY AND INTACT. R WRIST 24G INFUSING NS AT 10. CLEAN, DRY AND INTACT. ABDOMEN RASH. PATIENT IS CONTINENT. URINAL AT BEDSIDE. Addendum: 07/13/18 at 1140 by Jacklyn Stubbs RN WRONG TIME
[2018-07-13 12:00] VITALS: BP 109/79
--- NOTE | 2018-07-13 12:16 | NUR ---
PATIENT OFF BIPAP. ON 3L NC TO EAT LUNCH. WILL CONTINUE TO MONITOR
--- NOTE | 2018-07-13 14:00 | NUR ---
PATIENT IS SLEEPING. NO SIGNS OF DISTRESS NOTED. BED IN LOW POSITION, CALL LIGHT WITHIN REACH. WILL CONTINUE TO MONITOR.
[2018-07-13 16:00] VITALS: BP 96/68
--- NOTE | 2018-07-13 16:00 | NUR ---
PATIENT SITTING UP IN BED. NO SIGNS OF DISTRESS NOTED. BED IN LOW POSITION, CALL LIGHT WITHIN REACH. WILL CONTINUE TO MONITOR.
--- NOTE | 2018-07-13 17:04 | NUR ---
SPOKE WITH DOCTOR ABOUT LOW BP, LOWEST B/P 67/46 BUT WENT UP TO 96/68. DR GILBERT SAID TO HOLD ON COREG AND LASIX. WILL CONTINUE TO MONITOR. BED IN LOW POSITION, CALL LIGHT WITHIN REACH.
[2018-07-13] MEDS ORDERED: NACL 0.9% 1,000 ML IV SCH (17:15)
--- NOTE | 2018-07-13 17:37 | NUR ---
PT WANTS BIPAP REMOVED PLACED 3L OXYMIZER PLACED PT IN HF SPO2 100 RN INFORMED
--- NOTE | 2018-07-13 18:00 | NUR ---
PATIENT EATING DINNER. PATIENT TOLERATED WELL. WILL CONTINUE TO MONITOR.
[2018-07-13] MEDS ORDERED: NACL 0.9% 500 ML IV SCH (18:05)
--- NOTE | 2018-07-13 19:34 | NUR ---
GAVE BEDSIDE REPORT TO SUPERVISOR POWDERED METAL NURSE. PATIENT IN STABLE CONDITION.
--- NOTE | 2018-07-13 19:40 | NUR ---
RECEIVED PATIENT ON 3L/M OXYMIZER. PATIENT AWAKE, ALERT AND VERY IRATE. PATIENT YELLING AND CURSING. PATIENT DOES NOT APPEAR TO BE SHORT OF BREATH OR IN RESPIRATORY DISTRESS.
[2018-07-13 20:00] VITALS: BP 103/70
--- NOTE | 2018-07-13 21:37 | NUR ---
PT REQUESTING BREATHING TREATMENT. CALLED RT, WILL COME TO SEE PT.
[2018-07-13] MEDS ORDERED: ALBUTEROL SULFATE/IPRATROPIU 3 ML SOL IH PRN (21:40)
--- NOTE | 2018-07-13 21:57 | NUR ---
RT AT PT BEDSIDE.
--- NOTE | 2018-07-13 22:03 | NUR ---
PATIENT ON 3L/M OXIMIZER WHEN ENTERED ROOM BUT PRONGS WERE NOT IN PATIENTS NOSE. SPO2 96. PATIENT STATED THAT THE INSIDE OF HIS NOSE IS SO DRY THAT IT FEELS LIKE ROCKS. PATIENT COMPLETED HHN TREATMENT WITH NO ADVERSE EFFECTS. PLACED PATIENT ONTO 3L/M NASAL CANNULA HUMIDIFIED. PATIENT STATED THAT HE CANNOT TOLERATE AIR PRESSURE OF BIPAP BECAUSE NOSE IS TOO DRY.
--- NOTE | 2018-07-13 22:33 | NUR ---
SCHEDULED ELIQUIS NOT GIVEN D/T UNAVAILABLE. DR RUBALCAVA IS AWARE. PT IS RESTING IN BED COMFORTABLY TALKING ON PHONE. PT IS ON 3L NC. NO S/SX OF DISTRESS. WILL CONTINUE TO MONITOR.
[2018-07-14] VITALS: BP 90/54
--- NOTE | 2018-07-14 00:44 | NUR ---
PT IS ASLEEP IN BED. NO SIGNS OR SYMPTOMS OF DISTRESS. WILL CONTINUE TO MONITOR.
[2018-07-14 01:36] VITALS: BP 105/69
--- NOTE | 2018-07-14 01:37 | NUR ---
PT C/O PAIN. MORPHINE GIVEN. PT TOLERATED WELL. ALL OTHER NEEDS ARE MET AT THIS TIME. NO S/SX OF DISTRESS. WILL CONTINUE TO MONITOR.
--- NOTE | 2018-07-14 02:37 | NUR ---
PT NOW SLEEPING IN BED. NO SIGNS OR SYMPTOMS OF DISTRESS. WILL CONTINUE TO MONITOR.
[2018-07-14 04:00] VITALS: BP 118/53
--- NOTE | 2018-07-14 04:42 | NUR ---
PT LAYING IN BED WATCHING TV. NO SIGNS OR SYMPTOMS OF DISTRESS. WILL CONTINUE TO MONITOR.
--- NOTE | 2018-07-14 07:05 | NUR ---
ENDORSED PT TO DAY SHIFT NURSE FOR CONTINUITY OF CARE. PT IN STABLE CONDITION.
--- NOTE | 2018-07-14 07:06 | NUR ---
RECEIVED BEDSIDE REPORT FROM PM NURSE REGINA. PT IN BED, AWAKE, VERBALLY RESPONSIVE, RESPIRATIONS EVEN & NONLABORED IN ROOM AIR. PULSE OX & CARDIAC MONITORS IN PLACE. RIGHT FOREARM & LEFT AC IV ACCESS SITES INTACT & ASYMPTOMATIC. CALL LIGHT WITHIN REACH.
[2018-07-14 07:53] LABS: BASOPHILS % (AUTO) 0.3 % (0.0-2.0); EOSINOPHILS # (AUTO) 0.2 K/uL (0-0.4); EOSINOPHILS % (AUTO) 2.4 % (0.0-4.0); HEMATOCRIT 47.4 % (36-52); HEMOGLOBIN 15.1 g/dL (12.0-18.0); LYMPHOCYTES # (AUTO) 1.4 K/uL (2.0-11.5); LYMPHOCYTES % (AUTO) 20.3 % (20.5-51.1); MEAN CORPUSCULAR HEMOGLOBIN 30 pg (27-31); MEAN CORPUSCULAR HGB CONC 32 g/dL (33-37); MEAN CORPUSCULAR VOLUME 93.3 fL (80-94); MONOCYTES # (AUTO) 0.7 K/uL (0.8-1.0); MONOCYTES % (AUTO) 9.8 % (1.7-9.3); NEUTROPHILS # (AUTO) 4.7 K/uL (1.8-7.7); NEUTROPHILS % (AUTO) 67.2 % (42.2-75.2); PLATELET COUNT (AUTO) 148 K/uL (140-450); RED BLOOD CELL COUNT(AUTO) 5.08 MIL/uL (4.20-6.10); RED CELL DISTRIBUTION WIDTH 15.2 % (11.6-13.7)
[2018-07-14 08:00] VITALS: BP 114/91
[2018-07-14 08:20] LABS: ANION GAP 16.6 (8-16); CARBON DIOXIDE 22.4 mmol/L (21-32); CREATININE 1.3 mg/dL (0.7-1.3)
[2018-07-14 08:22] LABS: PHOSPHORUS 2.6 mg/dL (2.5-4.9)
[2018-07-14] MEDS ORDERED: PNEUMOCOCCAL VACCINE 23 MCG/0.5 ML VIAL IMVAC SCH (08:25)
[2018-07-14] MEDS: FUROSEMIDE 40 MG TAB PO SCH (08:27)
[2018-07-14] MEDS: ASPIRIN 81 MG TAB.CHEW PO SCH (08:27)
[2018-07-14] MEDS: BENAZEPRIL 5 MG TAB PO SCH (08:27)
[2018-07-14] MEDS: CARVEDILOL 3.125 MG TAB PO SCH (08:28)
[2018-07-14] MEDS: SPIRONOLACTONE 25 MG TAB PO SCH (08:28)
[2018-07-14] MEDS ORDERED: APIX2.5 PO (08:56)
[2018-07-14] MEDS ORDERED: SPIR25TA PO (08:56)
--- NOTE | 2018-07-14 11:00 | NUR ---
PT DISCHARGED AT THIS TIME. VERBAL & WRITTEN DISCHARGE INSTRUCTIONS PROVIDED TO PT. PT VERBALIZED UNDERSTANDING & AGREE TO F/U WITH HIS PCP & REGISTERED NURSE SUPERVISOR IN 3-5DAYS. LEFT AC & RIGHT FOREARM IV ACCESS SITES DISCONTINUED. NAME BAND REMOVED. PT ABLE TO AMB FROM BED TO WHEELCHAIR WITH STEADY GAIT. LEFT UNIT VIA WHEELCHAIR WITH RN. PER PT, HIS FRIEND WILL BE COMING TO PICK HIM UP IN A FEW MINUTES. PT WAITING BY FRONT DOOR PER HIS REQUEST, RESPIRATIONS EVEN & NONLABORED IN ROOM AIR, NO C/O DISCOMFORT. ALL BELONGINGS WITH PT.
[2018-07-14] MEDS: APIXABAN 2.5 MG TAB PO SCH (11:12)
== END 2018-07-14 11:00 | disposition home or self-care (01) | DRG 190 ==
LOC: MED 18:37 → MTU 21:50
PROVIDERS: ADMIT General Practice; ATTEND General Practice
PROC: 3E0234Z Introduction of Serum, Toxoid and Vaccine into Muscle, Percutaneous Approach (ICD-10-PCS; principal; 2018-07-14)
PROC: 3E02340 Introduction of Influenza Vaccine into Muscle, Percutaneous Approach (ICD-10-PCS; 2018-07-14)
DX: I21.A1 Myocardial infarction type 2 (principal); N17.0 Acute kidney failure with tubular necrosis; I50.43 Acute on chronic combined systolic (congestive) and diastolic (congestive) heart failure; D68.9 Coagulation defect, unspecified; E87.1 Hypo-osmolality and hyponatremia; I08.1 Rheumatic disorders of both mitral and tricuspid valves; I27.21 Secondary pulmonary arterial hypertension; I11.0 Hypertensive heart disease with heart failure; I44.7 Left bundle-branch block, unspecified; E86.0 Dehydration; E02 Subclinical iodine-deficiency hypothyroidism; E78.5 Hyperlipidemia, unspecified; E80.6 Other disorders of bilirubin metabolism; I25.10 Atherosclerotic heart disease of native coronary artery without angina pectoris; F17.210 Nicotine dependence, cigarettes, uncomplicated; K76.9 Liver disease, unspecified; K57.30 Diverticulosis of large intestine without perforation or abscess without bleeding; J44.9 Chronic obstructive pulmonary disease, unspecified; Z79.899 Other long term (current) drug therapy; Z79.82 Long term (current) use of aspirin; Z23 Encounter for immunization
CPT/HCPCS: 36415; 36600; 70450; 71045; 74150; 80048; 80053; 80305; 81003; 82140; 82550; 82553; 82803; 83036; 83690; 83735; 83880; 84100; 84436; 84439; 84443; 84479; 84484; 85025; 85610; 85730; 86704; 86706; 86708; 86709; 86803; 87081; 87340; 90658; 90732; 93005; 94640; 94660; 99285; J1644; J1940; J2060; J2270; J7030; J7042; J7620; Q0092

== ENCOUNTER 2018-08-15 16:21 | Inpatient (IN) | payer MEDICAID ==
[~2018-08-15] VITALS: Ht 172.7 cm; Wt 126.1 kg
[~2018-08-15 16:21] MED LIST changes: -AMIO200T PO; +APIX2.5 PO; +BENA20TA PO; +FURO-572 PO; -LAS20I PO; -LISI10TA11 PO; -SIMV20TA6 PO; -SYN.05 PO
[2018-08-15 16:35] VITALS: BP 111/79
--- NOTE | 2018-08-15 16:45 | NUR ---
BIB SELF WITH C/O MID CHEST PAIN, ABDOMINAL PAIN WITH VOMITING X 3 DAYS, SWOLLEN PENIS/TESTICLES/LOWER EXTREMITIES. ADMITTED ON 07/11/2018 FOR CP. PATIENT POSITIONED FOR COMFORT; HOB ELEVATED; BEDRAILS UP X1; BED DOWN. ER MD MADE AWARE OF PT STATUS.
--- NOTE | 2018-08-15 17:50 | NUR ---
# 16 FR Adkins catheter with 10 ml utilizing sterile technique. Immediate return of 250 ml KENN urine noted. Bedside drainage bag placed below level of bladder. Urine sample collected and sent to lab. Pt tolerated procedure WELL.
[2018-08-15 17:58] LABS: BASOPHILS % (AUTO) 0.5 % (0.0-2.0); HEMATOCRIT 50.4 % (36-52); HEMOGLOBIN 15.8 g/dL (12.0-18.0); LYMPHOCYTES % (AUTO) 14.8 % (20.5-51.1); MEAN CORPUSCULAR HEMOGLOBIN 28 pg (27-31); MEAN CORPUSCULAR HGB CONC 31 g/dL (33-37); MEAN CORPUSCULAR VOLUME 88.8 fL (80-94); MONOCYTES # (AUTO) 0.5 K/uL (0.8-1.0); MONOCYTES % (AUTO) 8.3 % (1.7-9.3); NEUTROPHILS # (AUTO) 4.9 K/uL (1.8-7.7); NEUTROPHILS % (AUTO) 76.4 % (42.2-75.2); PLATELET COUNT (AUTO) 126 K/uL (140-450); RED BLOOD CELL COUNT(AUTO) 5.67 MIL/uL (4.20-6.10); RED CELL DISTRIBUTION WIDTH 16.5 % (11.6-13.7); WHITE BLOOD COUNT (AUTO) 6.5 K/uL (4.8-10.8)
[2018-08-15 18:17] LABS: ANION GAP 17.5 (8-16); CARBON DIOXIDE 21.7 mmol/L (21-32); CREATININE 1.9 mg/dL (0.7-1.3); POTASSIUM 5.2 mmol/L (3.5-5.1)
[2018-08-15] MEDS: NACL 0.9% 1,000 ML IV SCH (18:23)
[2018-08-15] MEDS ORDERED: ZOLPIDEM 5 MG TAB PO PRN (18:25)
[2018-08-15] MEDS ORDERED: LORazepam 2 MG/ML VIAL IM/IVP PRN (18:25)
[2018-08-15] MEDS ORDERED: DOCUSATE SODIUM 100 MG GELCAP PO PRN (18:25)
[2018-08-15] MEDS ORDERED: HYDROcodone/APAP 5/325 MG 1 TAB TAB PO PRN (18:25)
[2018-08-15] MEDS ORDERED: ONDANSETRON 4 MG/2 ML VIAL IM/IVP PRN (18:25)
[2018-08-15] MEDS ORDERED: ACETAMINOPHEN 325 MG TAB PO PRN (18:25)
[2018-08-15 18:35] LABS: PROTHROMBIN TIME 20.2 secs (10.8-13.4)
[2018-08-15] MEDS ORDERED: FUROSEMIDE 100 MG/10 ML VIAL IVP ONE (18:35)
[2018-08-15 18:50] LABS: APPEARANCE,URINE CLEAR (CLEAR); BILIRUBIN,URINE 3+ (NEGATIVE); BLOOD, URINE NEGATIVE (NEGATIVE); COLOR,URINE BROWN (YELLOW); LEUKOCYTE ESTERASE ,URINE NEGATIVE (NEGATIVE); NITRITE, URINE POSITIVE (NEGATIVE); PH,URINE 5.5 (5.0-9.0); UGLUCOSE NEGATIVE (NEGATIVE)
[2018-08-15 19:09] LABS: RBC,URINE 0-5 (RARE) /HPF (0-5); WBC,URINE 0-5 (RARE) /HPF (0-5)
[2018-08-15 19:10] LABS: ANION GAP 18.9 (8-16); CARBON DIOXIDE 21.4 mmol/L (21-32); CREATININE 1.9 mg/dL (0.7-1.3); POTASSIUM 5.3 mmol/L (3.5-5.1)
[2018-08-15 19:10] LABS: URINE AMORPHOUS URATE 2+ /HPF (None Seen)
--- NOTE | 2018-08-15 19:18 | NUR ---
Patient will be admitted to care of DR. DOTY. Admited to TELE. Will go to room 111A. Belongings list completed. Report to ZAY BENJAMIN.
[2018-08-15 19:24] LABS: BARBITURATE, URINE NEG. ng/ml (NEG <=200); BENZODIAZEPINE, URINE NEG. ng/mL (NEG <=200); CANNABINOID, URINE NEG. ng/mL (NEG <=50); COCAINE, URINE NEG. ng/mL (NEG <=300); OPIATE, URINE POS. ng/mL (NEG <=2000); PHENCYCLIDINE SCREEN,URINE NEG. ng/mL (NEG <=25)
[2018-08-15 19:25] LABS: CHOL/HDL RATIO 4.9 (1-4.5); MAGNESIUM 2.3 mg/dL (1.8-2.4); PHOSPHORUS 5.1 mg/dL (2.5-4.9); THYROID STIMULATING HORMONE 1.52 uIU/mL (0.34-3.74); TOTAL BILIRUBIN 5.9 mg/dL (0.0-1.0)
--- NOTE | 2018-08-15 19:30 | NUR ---
RECEIVED FROM ER PER ANN MARIE AWAKE AND ALERT. OBESE MALE PT. WITH DX. OF CHF EXACERBATION/FLUID OVERLOAD. VERBALIZES NEEDS WELL. TELEMETRY MONITORING. CARE PLANS FOR THE NIGHT DISCUSSED WITH HIM AND PLACED ON 02 AT 2LP/NC. PT. WITH EDEMA WEEPING TO BILATERAL LOWER EXTREMITIES . IVF SITE TO LAC #[address] HEP LOCKED AT THIS TIME. NO PARALYSIS . A/O X 4. CLEAR SPEECH. ORIENTED TO ROOM AND BED. ENCOURAGED TO CALL FOR ANY HELP HE MAY NEED. "OK"
--- NOTE | 2018-08-15 20:08 | NUR ---
PT. SEEMS TO LIKE BEING NAKED. REFUSED TO HAVE HIS GOWN AT THIS TIME. TRYING TO GO URINATE ACCORDING TO PT. WITH FOOLEY CATHETER IN PLACE AND IT IS DRAINING WITH YELLOW URINE. CALL LIGHT WITH IN REACH.
[2018-08-15] MEDS ORDERED: NITROGLYCERIN 0.4 MG TAB SL PRN (22:05)
[2018-08-15] MEDS ORDERED: SODIUM POLYSTYRENE 15 GM/60 ML UDBTL PO SCH (22:30)
[2018-08-15 22:52] VITALS: BP 126/98
[2018-08-15] MEDS ORDERED: MORPHINE SULFATE 4 MG/ML SYR IVP SCH (23:00)
[2018-08-15] MEDS ORDERED: CALCIUM ACETATE 667 MG TAB PO SCH (23:00)
[2018-08-15] MEDS ORDERED: APIXABAN 2.5 MG TAB PO SCH (23:00)
[2018-08-15] MEDS ORDERED: CARVEDILOL 3.125 MG TAB PO SCH (23:00)
[2018-08-16] VITALS: BP 131/89
--- NOTE | 2018-08-16 | NUR ---
PT. AWAKE RT VITAL SIGNS TAKEN. WANTING TO EAT. REMINDED THAT HE IS NPO EFFECTIVE MIDNIGHT RT HE HAS A PROCEDURE/ ULTRASOUND OF ABDOMEN COMPLETE TOMORROW. PT. AWARE.
--- NOTE | 2018-08-16 02:33 | NUR ---
PT. MEDICATED WITH NORCO P.O. REQUESTED. "MY LEG HURTS" . MEDICATED REQUESTED. ENCOURAGED TO GO BACK TO SLEEP.
[2018-08-16 04:31] VITALS: BP 122/89
--- NOTE | 2018-08-16 05:27 | NUR ---
SLEEPING WELL POST P.O. PAIN RELIEVER. ABLE TO VERBALIZE NEEDS WELL. NO FURTHER COMPLAINTS DONE.
--- NOTE | 2018-08-16 07:22 | NUR ---
ENDORSED TO THE NEXT RN FOR CONTINUITY OF CARE AWAKE AND ALERT. NO SOB. ABLE TO VERBALIZE NEEDS WELL. NPO RT ULTRASOUND COMPLETE ABD. THIS A.M.
--- NOTE | 2018-08-16 07:24 | NUR ---
RECEIVED BEDSIDE REPORT FROM TRAVEL CONSULTANT NURSE. PATIENT IS AWAKE, ALERT AND ORIENTEDX4. NO SIGNS OF DISTRESS ON RA. IV ON L AC 20G TKO. CLEAN, DRY AND INTACT. SKIN IS INTACT. EDEMA BLE +2. PATIENT IS AMBULATORY. NPO FOR US. TELE MONITOR IN PLACE. BED IN LOW POSITION. WILKINSON IN PLACE. PATIENT CONTINENT. CALL LIGHT WITHIN REACH. WILL CONTINUE TO MONITOR THE PATIENT.
[2018-08-16 07:46] LABS: BASOPHILS % (AUTO) 0.2 % (0.0-2.0); EOSINOPHILS % (AUTO) 0.2 % (0.0-4.0); HEMATOCRIT 47.6 % (36-52); HEMOGLOBIN 15.1 g/dL (12.0-18.0); MEAN CORPUSCULAR HEMOGLOBIN 28 pg (27-31); MEAN CORPUSCULAR HGB CONC 32 g/dL (33-37); MEAN CORPUSCULAR VOLUME 87.9 fL (80-94); MONOCYTES # (AUTO) 0.4 K/uL (0.8-1.0); MONOCYTES % (AUTO) 6.5 % (1.7-9.3); NEUTROPHILS # (AUTO) 4.4 K/uL (1.8-7.7); NEUTROPHILS % (AUTO) 75.1 % (42.2-75.2); PLATELET COUNT (AUTO) 93 K/uL (140-450); RED BLOOD CELL COUNT(AUTO) 5.41 MIL/uL (4.20-6.10); RED CELL DISTRIBUTION WIDTH 16.3 % (11.6-13.7); WHITE BLOOD COUNT (AUTO) 5.8 K/uL (4.8-10.8)
--- NOTE | 2018-08-16 07:54 | NUR ---
REMOVED WILKINSON CATH PER DR ORDER. PATIENT TOLERATED WELL. PATIENT IS NPO FOR US BUT DR SAID OK TO GIVE ICE CHIPS.
[2018-08-16 08:00] VITALS: BP 123/85
--- NOTE | 2018-08-16 08:40 | NUR ---
PATIENT HAS BEEN SCREENED AND CATEGORIZED HIGH NUTRITION RISK. PATIENT WILL BE SEEN WITHIN 1-2 DAYS OF ADMISSION. 08/16/18-08/17/[address]
[2018-08-16] MEDS: CARVEDILOL 3.125 MG TAB PO SCH ×2 (08:53→17:18)
[2018-08-16] MEDS: FUROSEMIDE 40 MG/4 ML VIAL IVP SCH ×2 (08:55→17:18)
--- NOTE | 2018-08-16 08:58 | NUR ---
ADMINISTERED MEDS. PATIENT TOLERATED WELL. HELD ELIQUIS PER DR RICHARDS D/T LOW PLT AT THIS TIME. PATIENT HAS CONSULT W DR BARAHONA. PATIENT SHOWS NO SYMPTOMS OF BLEEDING AT THIS TIME. WILL CONTINUE TO MONITOR THE PATIENT.
[2018-08-16] MEDS ORDERED: BENAZEPRIL 5 MG TAB PO SCH (09:00)
[2018-08-16] MEDS ORDERED: NON-FORMULARY ITEM (Aspirin (Aspirin EC) 81 MG) PO SCH (09:00)
[2018-08-16] MEDS ORDERED: SPIRONOLACTONE 12.5 MG PO SCH (09:00)
[2018-08-16] MEDS ORDERED: SODIUM POLYSTYRENE 15 GM/60 ML UDBTL PO SCH (09:00)
[2018-08-16] MEDS ORDERED: SPIRONOLACTONE 25 MG TAB PO SCH ×2 (09:00→17:00)
[2018-08-16] MEDS ORDERED: APIXABAN 2.5 MG TAB PO SCH (09:00)
[2018-08-16] MEDS ORDERED: ECOTRIN 81 MG TABEC PO SCH (09:00)
[2018-08-16] MEDS ORDERED: FUROSEMIDE 20 MG TAB PO SCH (09:00)
[2018-08-16 09:04] LABS: ANION GAP 15.9 (8-16); CARBON DIOXIDE 25.2 mmol/L (21-32); CREATININE 1.7 mg/dL (0.7-1.3); POTASSIUM 5.1 mmol/L (3.5-5.1)
[2018-08-16 09:07] LABS: MAGNESIUM 2.2 mg/dL (1.8-2.4); PHOSPHORUS 4.4 mg/dL (2.5-4.9)
--- NOTE | 2018-08-16 09:31 | NUR ---
POTASSIUM 5.1 ADMINISTER MEDS ORDERED. PATIENT TOLERATED WELL. WILL CONTINUE TO MONITOR THE PATIENT
--- NOTE | 2018-08-16 10:22 | NUR ---
PATIENT IS SLEEPING. NO SIGNS OF DISTRESS. WILL CONTINUE TO MONITOR THE PATIENT
--- NOTE | 2018-08-16 11:36 | NUR ---
CHART REVIEW DONE.
[2018-08-16 12:00] VITALS: BP 104/83
--- NOTE | 2018-08-16 12:48 | NUR ---
PATIENT EATING ON CHAIR AT BEDSIDE. NO SIGNS OF DISTRESS. WILL CONTINUE TO MONITOR THE PATIENT
--- NOTE | 2018-08-16 13:03 | NUR ---
08/16/18 RD INITIAL ASSESSMENT COMPLETED PLEASE REFER TO NUTRITION ASSESSMENT UNDER CARE ACTIVITY FOR ESTIMATED NUTRITIONAL NEEDS. 1. CONTINUE CARDIAC DIET TOLERATED 2. DIETITIAN PROVIDED NUTRITION EDUCATION ON A CARDIAC HEALTHY DIET 3. RD TO FOLLOW-UP 3-5 DAYS, MODERATE RISK ALLAN OBRIEN RD
--- NOTE | 2018-08-16 14:49 | NUR ---
PATIENT SLEEPING. NO DISTRESS. WILL CONTINUE TO MONITOR
[2018-08-16] MEDS ORDERED: ALBUTEROL SULFATE/IPRATROPIU 3 ML SOL IH PRN (15:25)
[2018-08-16 16:00] VITALS: BP 106/73
[2018-08-16 16:04] LABS: ANION GAP 12.5 (8-16); CARBON DIOXIDE 28.9 mmol/L (21-32); CREATININE 1.8 mg/dL (0.7-1.3); POTASSIUM 4.4 mmol/L (3.5-5.1)
--- NOTE | 2018-08-16 16:37 | NUR ---
PATIENT ASKED TO SHOWER. DR RICHARDS AWARE THAT PATIENT GETS SOB W EXERTION AND SHE SAID NO TO SHOWER FOR CONTINUOUS TELE MONITORING. PATIENT CAN DO BED BATH. GAVE PATIENT TOWELS AND CLEANSING SUPPLIES
--- NOTE | 2018-08-16 17:22 | NUR ---
ADMINISTERED MEDS. PATIENT TOLERATED WELL. NO SIGNS OF DISTRESS. PATIENT TO GO BACK TO SLEEP. WILL CONTINUE TO MONITOR THE PATIENT
[2018-08-16] MEDS: NACL 0.9% 1,000 ML IV SCH (18:40)
--- NOTE | 2018-08-16 19:05 | NUR ---
GAVE BEDSIDE REPORT TO TUBULAR SPLITTING MACHINE TENDER NURSE. PATIENT ENDORSED IN STABLE CONDITION
--- NOTE | 2018-08-16 19:25 | NUR ---
RECEIVED FROM AM RN IN BED AWAKE AND ALERT. ON ROOM AIR WITH 02 SAT 98 %. DENIES ANY PAIN. CALL LIGHT WITH IN REACH. TELEMETRY MONITORING. NO COMPLAINTS DONE AT THIS TIME. IVF SITE INTACT AND NO INFILTRATION . GOOD BLOOD RETURN. AMBULATED TO RESTROOM LOCATED INSIDE ROOM BY HIMSELF. NOTED INDEPENDENT AND ABLE TO WALK WELL.
[2018-08-16 20:10] VITALS: BP 100/71
--- NOTE | 2018-08-16 22:30 | NUR ---
PT. WATCHING TV. AWAKE AND ALERT. NO SOB. DENIES PAIN. ABLE TO USE CALL LIGHT FOR HELP.
--- NOTE | 2018-08-17 | NUR ---
SLEEPING. CALL LIGHT WITH IN REACH. NO SOB. TELEMETRY MONITORING.
[2018-08-17 00:33] VITALS: BP 102/80
--- NOTE | 2018-08-17 01:46 | NUR ---
AWAKE AND AMBULATED TO RESTROOM TO URINATE. NO SOB. PT. ABLE TO VERBALIZE NEEDS WELL. WENT BACK TO SLEEP.
--- NOTE | 2018-08-17 03:15 | NUR ---
NO RESTLESSNESS. NO COMPLAINTS DONE. AWAKE . IVF SITE FLUSHED AND IN PLACE. ENCOURAGED TO NOT TURN OFF HIS IVF BY HIMSELF. VERBALIZES WELL. GOES BRP BY HIMSELF. INDEPENDENT.
[2018-08-17 04:00] VITALS: BP 126/90
[2018-08-17 06:41] LABS: BASOPHILS % (AUTO) 0.1 % (0.0-2.0); EOSINOPHILS # (AUTO) 0.1 K/uL (0-0.4); EOSINOPHILS % (AUTO) 0.6 % (0.0-4.0); HEMATOCRIT 45.8 % (36-52); HEMOGLOBIN 14.9 g/dL (12.0-18.0); LYMPHOCYTES # (AUTO) 0.7 K/uL (2.0-11.5); LYMPHOCYTES % (AUTO) 7.6 % (20.5-51.1); MEAN CORPUSCULAR HEMOGLOBIN 29 pg (27-31); MEAN CORPUSCULAR HGB CONC 33 g/dL (33-37); MEAN CORPUSCULAR VOLUME 87.4 fL (80-94); MONOCYTES # (AUTO) 0.4 K/uL (0.8-1.0); MONOCYTES % (AUTO) 4.4 % (1.7-9.3); NEUTROPHILS # (AUTO) 7.7 K/uL (1.8-7.7); NEUTROPHILS % (AUTO) 87.3 % (42.2-75.2); PLATELET COUNT (AUTO) 102 K/uL (140-450); RED BLOOD CELL COUNT(AUTO) 5.23 MIL/uL (4.20-6.10); RED CELL DISTRIBUTION WIDTH 16.2 % (11.6-13.7); WHITE BLOOD COUNT (AUTO) 8.9 K/uL (4.8-10.8)
--- NOTE | 2018-08-17 07:00 | NUR ---
SLEPT WELL THIS SHIFT. PT. KEEPS TURNING OFF HIS IVF. REMINDED THAT IT IS IMPORTANT.
--- NOTE | 2018-08-17 07:28 | NUR ---
ENDORSED TO THE NEXT RN FOR CONTINUITY OF CARE. NO COMPLAINTS DONE.
--- NOTE | 2018-08-17 07:30 | NUR ---
RECEIVED BEDSIDE REPORT FROM HAND BLOCKER NURSE. PATIENT IS AWAKE, ALERT AND ORIENTEDX4. NO SIGNS OF DISTRESS ON RA. IV L AC 20G STOPPED ITS LEAKING. SCROTUM IS EDEMATOUS, ABD IS FIRM AND DISTENDED. DR RICHARDS IS AWARE. WILL GIVE PATIENT NEW IV. SKIN HAS BLE EDEMA, OOZING IS PRESENT, DR DOTY IS AWARE. HE IS AMBULATORY. GAIT IS STEADY. TELE MONITOR IN PLACE. PATIENT IS CONTINENT. BED IN LOW POSITION. CALL LIGHT WITHIN REACH. WILL CONTINUE TO MONITOR THE PATIENT.
[2018-08-17 08:00] VITALS: BP 118/79
[2018-08-17] MEDS ORDERED: FURO-572 PO ×2 (08:48→11:20)
[2018-08-17] MEDS ORDERED: FUROSEMIDE 40 MG/4 ML VIAL IVP SCH (09:00)
[2018-08-17] MEDS ORDERED: FUROSEMIDE 20 MG/2 ML VIAL IVP SCH (09:02)
[2018-08-17 09:11] LABS: ANION GAP 11.1 (8-16); CARBON DIOXIDE 28.3 mmol/L (21-32); CREATININE 1.5 mg/dL (0.7-1.3); POTASSIUM 3.4 mmol/L (3.5-5.1)
[2018-08-17] MEDS: CARVEDILOL 3.125 MG TAB PO SCH (09:46)
--- NOTE | 2018-08-17 09:55 | NUR ---
ADMINISTERED MEDS. PATIENT TOLERATED WELL. PATIENT OK TO SHOWER PER DR RICHARDS. WILL CONTINUE TO MONITOR
[2018-08-17] MEDS ORDERED: POTASSIUM CHLORIDE 10 MEQ TABER PO SCH (10:30)
--- NOTE | 2018-08-17 10:45 | NUR ---
PATIENT BACK IN BED FROM SHOWER. IV OK. TELE PLACED BACK ON. IV INFUSING NS AT 50. CLEAN, DRY AND INTACT.
--- NOTE | 2018-08-17 11:25 | NUR ---
ADMINISTERED ORDER OF POTASSIUM. PATIENT TOLERATED WELL. WILL CONTINUE TO MONITOR THE PATIENT
[2018-08-17 12:00] VITALS: BP_SYST 120; BP_SYST 98; BP_DIAS 64; BP_DIAS 68
--- NOTE | 2018-08-17 13:30 | NUR ---
PATIENT FEELS LIKE HE GOT WORSE AND ISNT ANY BETTER THAN WHEN HE FIRST CAME IN. TOLD DR TRIANA AND DR RICHARDS. THEY SAID PATIENT IS STILL GETTING DISCHARGED. HE IS STABLE AND IN NO NEED TO STAY AT THIS TIME.
--- NOTE | 2018-08-17 13:35 | NUR ---
EDUCATED PATIENT ON DISEASE PROCESS, ABN S/SX WHEN TO GO TO THE ER, EDUCATED ON MEDS, MEDS SENT TO HIS PHARMACY, EDUCATED ON FOLLOW UP W DR BARAHONA. EDUCATED ON HOW TO KEEP WOUNDS ON LEGS CLEAN, DRY AND INTACT. VACCINES ARE UP TO DATE. PATIENT LEFT WITH MONEY GIVEN BACK FROM ADMISSIONS, AND BELONGINGS. ID BANDS REMOVED, IV REMOVED. TIP INTACT. PATIENT LEFT IN STABLE CONDITION
[2018-08-17] MEDS ORDERED: SULF-59 PO (14:34)
[2018-08-18] MEDS ORDERED: FUROSEMIDE 20 MG/2 ML VIAL IVP SCH (09:00)
== END 2018-08-17 13:35 | disposition home or self-care (01) | DRG 194 ==
LOC: MED 16:21 → MTU 18:23
PROVIDERS: ADMIT General Practice; ATTEND General Practice
DX: I11.0 Hypertensive heart disease with heart failure (principal); N17.0 Acute kidney failure with tubular necrosis; E44.0 Moderate protein-calorie malnutrition; D68.9 Coagulation defect, unspecified; E87.1 Hypo-osmolality and hyponatremia; E83.39 Other disorders of phosphorus metabolism; I50.43 Acute on chronic combined systolic (congestive) and diastolic (congestive) heart failure; E87.5 Hyperkalemia; I42.0 Dilated cardiomyopathy; I25.10 Atherosclerotic heart disease of native coronary artery without angina pectoris; F15.10 Other stimulant abuse, uncomplicated; I25.2 Old myocardial infarction; Z79.82 Long term (current) use of aspirin; Z79.01 Long term (current) use of anticoagulants; Z79.899 Other long term (current) drug therapy; Z71.51 Drug abuse counseling and surveillance of drug abuser; Z68.41 Body mass index [BMI] 40.0-44.9, adult
CPT/HCPCS: 36415; 51702; 71045; 76700; 80048; 80053; 80305; 81001; 82150; 83036; 83690; 83735; 83880; 84100; 84439; 84443; 84484; 85025; 85610; 87081; 96374; 99285; J1940; J2270; J7030; Q0092

== ENCOUNTER 2018-10-01 09:47 | Inpatient (IN) | payer MEDICAID ==
[~2018-10-01] VITALS: Ht 182.9 cm; Wt 93.0 kg
[~2018-10-01 09:47] MED LIST changes: -APIX2.5 PO; -ASPI-1173 PO; -BENA20TA PO; -SPIR25TA PO; +SULF-59 PO
--- NOTE | 2018-10-01 09:54 | NUR ---
PATIENT AMBULATED TO BED 6.
[2018-10-01 09:57] VITALS: BP 131/102
--- NOTE | 2018-10-01 10:00 | NUR ---
PT C/O SOB X 1 DAY , COUGH X 4 DAYS. CHEST PAIN X 4 DAYS CONSTANT. PER PT " I WAS DISCHARGED FROM [facility] X 1 DAY AGO. RR EVEN AND UNLABORED. SKIN WARM AND DRY AND NON DIAPHORETIC. CP STERNAL THAT RADIATES TO L AND R SIDE OF CHEST CONSTANT 7/10 PRESSURE SENSATION.. DENIES N/V/D; SKIN IS PINK/WARM/DRY BUT BOTH LOWERT EXTREMITIES ARE RED, SWOLLEN AND EDEMATOUS, PT REFUSED TO TOUCH HIS LOWER LEG DUE TO PAIN ; AWAKE, ALERT. HOOKED PT TO BEDSIDE MONITOR SHOWS SR-ST (95-102S) PT DENIES ANY FEVER, OR COUGH AT THIS TIME; PATIENT STATES PAIN OF 7/10 AT THIS TIME; VSS; PATIENT POSITIONED FOR COMFORT; HOB ELEVATED; BEDRAILS UP X2; BED DOWN. ER MD MADE AWARE OF PT STATUS.
[2018-10-01 11:42] LABS: BASOPHILS % (AUTO) 0.6 % (0.0-2.0); EOSINOPHILS % (AUTO) 0.6 % (0.0-4.0); HEMATOCRIT 45.3 % (36-52); HEMOGLOBIN 14.6 g/dL (12.0-18.0); LYMPHOCYTES # (AUTO) 0.9 K/uL (2.0-11.5); LYMPHOCYTES % (AUTO) 13.6 % (20.5-51.1); MEAN CORPUSCULAR HEMOGLOBIN 28 pg (27-31); MEAN CORPUSCULAR HGB CONC 32 g/dL (33-37); MONOCYTES # (AUTO) 0.2 K/uL (0.8-1.0); MONOCYTES % (AUTO) 3.4 % (1.7-9.3); NEUTROPHILS # (AUTO) 5.2 K/uL (1.8-7.7); NEUTROPHILS % (AUTO) 81.8 % (42.2-75.2); PLATELET COUNT (AUTO) 124 K/uL (140-450); RED BLOOD CELL COUNT(AUTO) 5.27 MIL/uL (4.20-6.10); RED CELL DISTRIBUTION WIDTH 21.6 % (11.6-13.7); WHITE BLOOD COUNT (AUTO) 6.4 K/uL (4.8-10.8)
[2018-10-01 11:54] LABS: ANION GAP 8.5 (8-16); CARBON DIOXIDE 33.6 mmol/L (21-32); CREATININE 1.3 mg/dL (0.7-1.3); POTASSIUM 3.1 mmol/L (3.5-5.1)
[2018-10-01 12:00] LABS: ALBUMIN 2.6 g/dL (3.4-5.0); TOTAL BILIRUBIN 5.6 mg/dL (0.0-1.0)
--- NOTE | 2018-10-01 12:00 | NUR ---
ASKED PT FOR URINE SAMPLE, PT STATED HE DOES NOT WANT TO PEE AT THIS TIME.
[2018-10-01] MEDS ORDERED: NACL 0.9% 2,500 ML IV ONE (12:10)
[2018-10-01 13:00] VITALS: BP 114/72
[2018-10-01] MEDS ORDERED: POTASSIUM CHLORIDE 10 MEQ TABER PO ONE (13:00)
[2018-10-01] MEDS ORDERED: NITROGLYCERIN 2% 1 GM PKT TP ONE (13:05)
[2018-10-01] MEDS ORDERED: PIPERACILLIN/TAZOBACTAM 3.375 GM in DEXTROSE 5% 50 ML IV ONE (13:05)
[2018-10-01] MEDS ORDERED: ASPI-1677 PO (13:25)
[2018-10-01] MEDS ORDERED: PIPERACILLIN/TAZOBACTAM 3.375 GM VIAL IV ONE ×2 (13:26→20:13)
[2018-10-01] MEDS: NACL 0.9% 1,000 ML IV SCH (13:36)
[2018-10-01] MEDS ORDERED: DOCUSATE SODIUM 100 MG GELCAP PO PRN (13:40)
[2018-10-01] MEDS ORDERED: ONDANSETRON 4 MG/2 ML VIAL IM/IVP PRN (13:40)
[2018-10-01] MEDS ORDERED: ACETAMINOPHEN 325 MG TAB PO PRN (13:40)
--- NOTE | 2018-10-01 13:50 | NUR ---
TOLD DR. TAN WE STILL DO NOT GET URINE SAMPLE YET, ASKED HIM FOR STRAIGHT CATH, DR. TAN STATED NOT RIGHT NOW.
[2018-10-01] MEDS: HYDROcodone/APAP 7.5/325 MG 1 TAB PO PRN ×2 (14:01→20:12)
[2018-10-01 14:14] LABS: CHOL/HDL RATIO 6.4 (1-4.5); MAGNESIUM 1.8 mg/dL (1.8-2.4); THYROID STIMULATING HORMONE 8.71 uIU/mL (0.34-3.74)
[2018-10-01] MEDS ORDERED: ECOTRIN 81 MG TABEC PO SCH (14:30)
--- NOTE | 2018-10-01 14:40 | NUR ---
PT TRANSFERRED TO TELE 110 A, REPORT GIVEN TO CATHERINE. AWAKE, ALERT. PT WALKED FROM HALLWAY TO PT'S RROM.
--- NOTE | 2018-10-01 14:40 | NUR ---
Pt admitted from ER via [facility]. Amb from [facility] to bed with steady gait. Report received from [facility] ER nurse. Pt oriented to room & unit, verbalized understanding. Medical hx obtained from pt. Dr. Benitez at bedside. Right ac IV intact & asymptomatic. Call light within reach.
[2018-10-01] MEDS ORDERED: FUROSEMIDE 20 MG/2 ML VIAL IVP SCH (14:57)
[2018-10-01] MEDS: FUROSEMIDE 40 MG/4 ML VIAL IVP SCH (17:38)
[2018-10-01 17:42] LABS: APPEARANCE,URINE CLEAR (CLEAR); BILIRUBIN,URINE 2+ (NEGATIVE); BLOOD, URINE NEGATIVE (NEGATIVE); LEUKOCYTE ESTERASE ,URINE NEGATIVE (NEGATIVE); NITRITE, URINE NEGATIVE (NEGATIVE); UGLUCOSE NEGATIVE (NEGATIVE)
[2018-10-01 17:43] LABS: COLOR,URINE AMBER (YELLOW)
[2018-10-01 17:53] LABS: BARBITURATE, URINE NEG. ng/ml (NEG <=200); BENZODIAZEPINE, URINE NEG. ng/mL (NEG <=200); CANNABINOID, URINE NEG. ng/mL (NEG <=50); COCAINE, URINE NEG. ng/mL (NEG <=300); OPIATE, URINE NEG. ng/mL (NEG <=2000); PHENCYCLIDINE SCREEN,URINE NEG. ng/mL (NEG <=25)
[2018-10-01] MEDS: ALBUTEROL SULFATE/IPRATROPIU 3 ML SOL IH SCH (18:44)
--- NOTE | 2018-10-01 19:16 | NUR ---
Report given to pm nurse Miguel Angel.
--- NOTE | 2018-10-01 19:18 | NUR ---
RECEIVED PT AWAKE ON BED, AAOX4, VITAL SIGNS STABLE, SAT-93% ON ROOM AIR, PT CAN SPEAK ON COMPLETE SENTENCES BUT WITH DYSPNEA NOTED, HOB ELEVATED TO HIGH FOWLERS POSITION, SLIGHT IMPROVEMENT NOTED, WILL MONITOR CLOSELY, IVF INFUSING WELL AT TKO RATE, BLE EDEMA NOTED, VOIDING FREELY PER URINAL WIT 250 ML STRAW COLORED URINE, ON FLUID RESTRICTION, PT AWARE, PLAN OF CARE DISCUSSED, SAFETY MEASURES IN PLACE, CALL LIGHT WITHIN REACH.
[2018-10-01 20:00] VITALS: BP 106/76
[2018-10-01] MEDS: PIPER/TAZO 3.375GM/D5W PREMIX 50 ML IV SCH (20:08)
--- NOTE | 2018-10-01 22:10 | NUR ---
PT SITTING ON BED WATCHING TV, SLIGHT LABORED BREATHING BUT NO RESP DISTRESS NOTED, 94% SAT ON ROOM AIR, WITH OCCASIONAL COUGH, SPECIMEN PROVIDED FOR SPUTUM COLLECTION, MONITORED CLOSELY.
[2018-10-02] VITALS: BP 111/79
[2018-10-02] MEDS: HYDROcodone/APAP 7.5/325 MG 1 TAB PO PRN (00:02)
--- NOTE | 2018-10-02 01:20 | NUR ---
PT SEEN DOZING OFF, NO RESPIRATORY DISTRESS, MONITORED CLOSELY.
[2018-10-02 04:00] VITALS: BP 106/77
--- NOTE | 2018-10-02 04:00 | NUR ---
PT AWAKE WATCHING TV, VITAL SIGNS STABLE, SR-ST ON TELE, DENIES ANY PAIN, NO RESP DISTRESS NOTED, UNABLE TO COLLECT SPUTUM AT THIS TIME, DRY COUGH NOTED, MONITORED CLOSELY.
--- NOTE | 2018-10-02 04:20 | NUR ---
PT SEEN SLEEPING ALMOST FLAT ON BED, PUT PT ON FOWLERS POSITION, NO RESP DISTRESS NOTED, MONITORED CLOSELY.
[2018-10-02] MEDS: PIPER/TAZO 3.375GM/D5W PREMIX 50 ML IV SCH ×3 (04:31→21:06)
[2018-10-02] MEDS: LEVOTHYROXINE 0.025 MG TAB PO SCH (05:50)
--- NOTE | 2018-10-02 05:50 | NUR ---
PT AWAKE, DUE SYNTHROID GIVEN, ZOSYN IVPB INFUSING WELL, TOLERABLE LEG PAIN 2/10 AT THIS TIME, MONITORED CLOSELY.
--- NOTE | 2018-10-02 07:21 | NUR ---
PT AWAKE SITTING ON BED, NO SIGNS OF DISTRESS, REPORT GIVEN TO RN CATHERINE FOR CONTINUITY OF CARE.
--- NOTE | 2018-10-02 07:22 | NUR ---
Report received from pm nurse Miguel Angel. Pt sitting up in bed, FLACC 0, respirations deep but even & nonlabored. Denies any SOB at this time. Call light within reach.
[2018-10-02 08:00] VITALS: BP 114/76
[2018-10-02 08:00] LABS: BASOPHILS % (AUTO) 0.5 % (0.0-2.0); EOSINOPHILS # (AUTO) 0.1 K/uL (0-0.4); HEMATOCRIT 46.4 % (36-52); HEMOGLOBIN 15.1 g/dL (12.0-18.0); LYMPHOCYTES # (AUTO) 1.1 K/uL (2.0-11.5); LYMPHOCYTES % (AUTO) 17.5 % (20.5-51.1); MEAN CORPUSCULAR HEMOGLOBIN 28 pg (27-31); MEAN CORPUSCULAR HGB CONC 33 g/dL (33-37); MEAN CORPUSCULAR VOLUME 86.4 fL (80-94); MONOCYTES # (AUTO) 0.2 K/uL (0.8-1.0); MONOCYTES % (AUTO) 3.9 % (1.7-9.3); NEUTROPHILS # (AUTO) 4.8 K/uL (1.8-7.7); NEUTROPHILS % (AUTO) 77.1 % (42.2-75.2); PLATELET COUNT (AUTO) 116 K/uL (140-450); RED BLOOD CELL COUNT(AUTO) 5.37 MIL/uL (4.20-6.10); RED CELL DISTRIBUTION WIDTH 21.4 % (11.6-13.7); WHITE BLOOD COUNT (AUTO) 6.3 K/uL (4.8-10.8)
[2018-10-02 08:20] LABS: PHOSPHORUS 3.3 mg/dL (2.5-4.9)
[2018-10-02] MEDS: ALBUTEROL SULFATE/IPRATROPIU 3 ML SOL IH SCH ×3 (08:23→19:31)
[2018-10-02 08:36] LABS: ANION GAP 6.8 (8-16); CARBON DIOXIDE 34.1 mmol/L (21-32); CREATININE 1.3 mg/dL (0.7-1.3); POTASSIUM 3.9 mmol/L (3.5-5.1)
[2018-10-02] MEDS: FUROSEMIDE 40 MG/4 ML VIAL IVP SCH ×2 (09:05→17:35)
[2018-10-02] MEDS: ASPIRIN 81 MG TAB.CHEW PO SCH (09:05)
[2018-10-02] MEDS: LACTOBACILLUS RHAMNOSUS GG 1 EACH CAP PO SCH (09:05)
[2018-10-02 12:00] VITALS: BP 119/84
--- NOTE | 2018-10-02 12:15 | NUR ---
Pt sitting up in bed, eating lunch. No s/s distress, no c/o discomfort. Call light within reach. R AC IV intact & asymptomatic with ongoing NS @ 10ml/hr.
[2018-10-02] MEDS: NACL 0.9% 1,000 ML IV SCH (13:30)
[2018-10-02 16:00] VITALS: BP 110/83
--- NOTE | 2018-10-02 17:32 | NUR ---
Morphine med override d/t c/o 03/18 pain to BLE. Offered Norcp prior to Morphine, but pt refused stating it doesn't work. Will cont to monitor.
[2018-10-02] MEDS ORDERED: MORPHINE SULFATE 2 MG/ML SYR ONE (17:37)
--- NOTE | 2018-10-02 19:06 | NUR ---
Report given to pm nurse Miguel Angel. Pt sitting up in bed, no s/s of distress.
[2018-10-02 20:00] VITALS: BP 106/77
--- NOTE | 2018-10-02 20:50 | NUR ---
RT LUNG THORACENTESIS DONE BY DR RAMIREZ AT BEDSIDE, TOOK OUT 1050ML STRAW COLORED FLUID, SITE MONITORED FOR ANY BLEEDING, PT SITTING UP ON BED, NO DISTRESS NOTED, VITAL SIGNS STABLE, THORACENTESIS FLUID WILL BE SENT TO LAB, MONITORED CLOSELY.
[2018-10-02] MEDS: MORPHINE SULFATE 4 MG/ML SYR IVP PRN (23:21)
--- NOTE | 2018-10-02 23:25 | NUR ---
VITAL SIGNS STABLE, MEDICATED PRN WITH MORPHINE IVP FOR PAIN, NO RESP DISTRESS NOTED, OCCASIONAL COUGH NOTED, IVF INFUSING WELL AT 10ML/H, CONTINUE TO MONITOR CLOSELY.
[2018-10-03] VITALS: BP 108/74
--- NOTE | 2018-10-03 03:50 | NUR ---
PT AWAKE SITTING UP ON BED, VITAL SIGNS STABLE, COMPLAINING OF PAIN, KEEP ON MASSAGING HIS LEGS, OFFERED NORCO BUT PT PREFER MORPHINE, MADE AWARE OF NEXT DUE TIME, MONITORED CLOSELY.
[2018-10-03 04:00] VITALS: BP 107/83
[2018-10-03] MEDS: PIPER/TAZO 3.375GM/D5W PREMIX 50 ML IV SCH ×2 (04:46→14:40)
[2018-10-03] MEDS: MORPHINE SULFATE 4 MG/ML SYR IVP PRN (05:02)
--- NOTE | 2018-10-03 05:05 | NUR ---
MEDICATED PRN FOR LEG PAIN WITH MORPHINE IVP, PT STATED NO BM FOR SEVERAL DAYS, COLACE PO GIVEN PRN ORDERED FOR CONSTIPATION, NO RESP DISTRESS, MONITORED CLOSELY.
[2018-10-03] MEDS: LEVOTHYROXINE 0.025 MG TAB PO SCH (05:36)
[2018-10-03 05:42] LABS: SPECIMENTYPE,BODY FLUID PLEURAL
[2018-10-03 05:43] LABS: APPEARANCE,SPUN,BODY FLUID CLEAR (CLEAR); APPEARANCE,UNSPUN,BODY FLUID SLIGHTLY HAZY (CLEAR); COLOR,BODY FLUID YELLOW (LT YELLOW); OTHER CELLS,BODY FLUID 0; POLYNUCLEAR, BODY FLUID 0 %; RBC, BODY FLUID 255000 /cu. mm.; TOTAL VOLUME,BODY FLUID 1100 mL; WBC, BODY FLUID 4 /cu. mm.
[2018-10-03 05:44] LABS: GLUCOSE,BODY FLUID 117 mg/dL
--- NOTE | 2018-10-03 06:20 | NUR ---
REPORT RECEIVED FROM NIGHT NURSE VALDEMAR. PT AWAKE A/O ABLE TO COMMUNICATE NEEDS. PT DENIES SOB. NO S/S OF ACUTE DISTRESS NOTED. PERSONAL ITEMS WITHIN REACH. CALL LIGHT AND SAFETY MEASURES IN PLACE, WILL CONTINUE TO MONITOR.
[2018-10-03 07:00] LABS: BASOPHILS % (AUTO) 0.6 % (0.0-2.0); EOSINOPHILS # (AUTO) 0.1 K/uL (0-0.4); EOSINOPHILS % (AUTO) 1.9 % (0.0-4.0); HEMATOCRIT 44.1 % (36-52); HEMOGLOBIN 14.2 g/dL (12.0-18.0); MEAN CORPUSCULAR HEMOGLOBIN 28 pg (27-31); MEAN CORPUSCULAR HGB CONC 32 g/dL (33-37); MEAN CORPUSCULAR VOLUME 86.7 fL (80-94); MONOCYTES # (AUTO) 0.4 K/uL (0.8-1.0); MONOCYTES % (AUTO) 5.1 % (1.7-9.3); NEUTROPHILS # (AUTO) 5.5 K/uL (1.8-7.7); NEUTROPHILS % (AUTO) 78.4 % (42.2-75.2); PLATELET COUNT (AUTO) 117 K/uL (140-450); RED BLOOD CELL COUNT(AUTO) 5.09 MIL/uL (4.20-6.10); RED CELL DISTRIBUTION WIDTH 21.4 % (11.6-13.7)
[2018-10-03 07:17] LABS: ANION GAP 14.3 (8-16); CARBON DIOXIDE 31.7 mmol/L (21-32); CREATININE 1.3 mg/dL (0.7-1.3)
--- NOTE | 2018-10-03 07:27 | NUR ---
PT AWAKE, NO SIGNS OF DISTRESS, REPORT GIVEN TO SOURAV OLIVA FOR CONTINUITY OF CARE.
[2018-10-03] MEDS: ALBUTEROL SULFATE/IPRATROPIU 3 ML SOL IH SCH (07:48)
[2018-10-03 08:00] VITALS: BP 111/76
--- NOTE | 2018-10-03 08:10 | NUR ---
DR DOTY AT BEDSIDE TO ROUND ON PT. DISCUSSED PLAN OF CARE, PT VERBALIZED UNDERSTANDING AND IS AGREEABLE TO PLAN. PERSONAL ITEMS WITHIN REACH, CALL LIGHT AND SAFETY MEASURES IN PLACE, WILL CONTINUE TO MONITOR.
--- NOTE | 2018-10-03 08:26 | NUR ---
PATIENT HAS BEEN SCREENED AND CATEGORIZED HIGH NUTRITION RISK. PATIENT WILL BE SEEN WITHIN 1-2 DAYS OF ADMISSION. 10/03/[address]
--- NOTE | 2018-10-03 08:30 | NUR ---
DR BERGERON NOTIFIED OF PT POTASSIUM, ORDERS TO BE WRITTEN.
[2018-10-03 08:46] LABS: T4 (THYROXINE) 6.5 ug/dL (4.5-12.0)
[2018-10-03] MEDS: LACTOBACILLUS RHAMNOSUS GG 1 EACH CAP PO SCH (09:00)
[2018-10-03] MEDS ORDERED: POTASSIUM CHLORIDE 10 MEQ TABER PO SCH (09:15)
[2018-10-03] MEDS ORDERED: POTASSIUM CHLORIDE 40 MEQ, LIDOCAINE 1% 25 MG in NACL 0.9% 250 ML IV SCH (10:00)
[2018-10-03] MEDS: ASPIRIN 81 MG TAB.CHEW PO SCH (10:05)
[2018-10-03] MEDS: FUROSEMIDE 40 MG/4 ML VIAL IVP SCH (10:05)
--- NOTE | 2018-10-03 10:11 | NUR ---
WOUND CARE EVALUATION NOTES: REASON FOR EVALUATION: BLE CLOSED WOUNDS SKIN ASSESSMENT DONE ON THIS 52Y/O MALE PATIENT TO [facility], WITH INITIAL DIAGNOSIS OF SOB X 2 DAYS. PAST MEDICAL HISTORY INCLUDE CHF, HTN, CAD AND POLYSUBSTANCE ABUSE.ALL ABOVE INFORMATION WAS OBTAINED FROM THE ADMISSION H&P. PATIENT IS AWAKE, ALERT, ORIENTED TO PERSON, PLACE, DATE AND TIME. SKIN WARM TO TOUCH WNL, BLE WITH NO HAIR GROWTH, NO EDEMA AND PRESENT OF BILATERAL PEDAL PULSES. URINE AND BOWEL CONTINENT, ABLE TO AMBULATE TO THE RESTROOM CLAIMED. ABLE TO TURN SELF WITHOUT ASSISTANCE. INITIAL PLAN OF CARE DISCUSSED, PT. ABLE TO VERBALIZE UNDERSTANDING. INTEGUMENTARY: -MULTIPLE TATTOO TO BILATERAL UPPER EXTREMITIES AND ANTERIOR AND POSTERIOR TRUNK -DRY SKIN TO BACK, UPPER EXTREMITIES SKIN INTACT -BLE TO DORSAL FEET CELLULITIS ERYTHEMA, +2 EDEMA, MULTIPLE SMALL DRY BLACK SCABS WITH SKIN INTACT -ATHLETE�S FOOT INTERSPACES X 10 TOES WHITE MOISTURES SKIN, FUNGAL LIKE NAILS RECOMMENDATIONS: -APPLY ANTIFUNGAL CREAM TO INTERSPACES AND 10 TOES, KEEP AREA DRY AND CLEAN -PAINT MULTIPLE SCABS TO BILATERAL UPPER AND LOWER EXTREMITIES WITH BETADINE SOLUTION BID AND LEAVE IT OPEN TO AIR -APPLY MOISTURIZES TO BUE AND HEELS DRY CRACKED SKIN AREA BID AND LEAVE IT OPEN TO AIR -ASSESS AND MONITOR SKIN CONDITION BLE BELOW KNEES TO FEET Q SHIFT, PLEASE PAY ATTENTION TO ERYTHEMA -OFFLOAD BILATERAL HEELS BY PLACING PILLOWS UNDER CALVES AT ALL TIMES, UNLESS OTHERWISE CONTRAINDICATED RECOMMENDATIONS DISCUSSED WITH DR. MARIO PLEASE CONTACT WOUND CARE NURSE FOR ANY QUESTIONS AND CHANGES IN SKIN CONDITION.
[2018-10-03] MEDS ORDERED: CLIN300C2 PO (10:51)
[2018-10-03] MEDS ORDERED: LEVO750T2 PO (10:51)
--- NOTE | 2018-10-03 11:30 | NUR ---
PT ASLEEP EASILY AROUSABLE BY VERBAL STIIMULI TO A/O ABLE TO COMMUNICATE NEEDS, PT DENIES SOB. NO S/S OF ACUTE DISTRESS NOTED. CALL LIGHT AND PERSONAL ITEMS WITHIN REACH. SAFETY MEASURES IN PLACE, WILL CONTINUE TO MONITOR.
[2018-10-03 12:00] VITALS: BP 101/60
[2018-10-03] MEDS ORDERED: ANTIFUNGAL CLEAR OINTMENT TP ONE (13:00)
[2018-10-03] MEDS ORDERED: MILD SOAP AND WATER TP SCH (13:00)
[2018-10-03] MEDS: NACL 0.9% 1,000 ML IV SCH (13:28)
--- NOTE | 2018-10-03 14:35 | NUR ---
IV POTASSIUM COMPLETED, PER PT HE IS WILL TAKE A [facility]AX[facility] HOME, DISCHARGE PAPERWORK IN PROCESS. PT DENIES SOB. NO S/S OF ACUTE DISTRESS NOTED. CALL LIGHT AND PERSONAL ITEMS WITHIN REACH. SAFETY MEASURES IN PLACE, WILL CONTINUE TO MONITOR.
[2018-10-03 14:44] VITALS: BP 101/60
[2018-10-03 15:03] LABS: ALBUMIN 2.6 g/dL (3.4-5.0); ANION GAP 12.8 (8-16); CREATININE 1.2 mg/dL (0.7-1.3); POTASSIUM 3.8 mmol/L (3.5-5.1); TOTAL BILIRUBIN 5.4 mg/dL (0.0-1.0)
--- NOTE | 2018-10-03 16:55 | NUR ---
PERIPHERAL IV REMOVED TOLERATED WELL, CATH INTACT, NAME BAND REMOVED. PT DISCHARGED HOME VIA [facility] SERVICE W ALL PERSONAL BELONGINGS. PT REMAINS A/O ABLE TO COMMUNICATE NEEDS. PT DENIES SOB. NO S/S OF ACUTE DISTRESS NOTED. PROVIDED DISCHARGE INSTRUCTIONS AND PT VERBALIZES UNDERSTANDING.
--- NOTE | 2018-10-05 08:39 | NUR ---
Late entry. Confirmed with RN that Pipercillin ran over 1 hour and completed at 1430. IV fluids 0.9 NS at 176ml/hr was discontinues on the way to the floor at 1440.
== END 2018-10-03 16:55 | disposition home or self-care (01) | DRG 720 ==
LOC: MED 09:47 → MTU 13:40
PROVIDERS: ADMIT General Practice; ATTEND General Practice
PROC: 0W993ZZ Drainage of Right Pleural Cavity, Percutaneous Approach (ICD-10-PCS; principal; 2018-10-02)
DX: A41.9 Sepsis, unspecified organism (principal); E43 Unspecified severe protein-calorie malnutrition; I50.43 Acute on chronic combined systolic (congestive) and diastolic (congestive) heart failure; J90 Pleural effusion, not elsewhere classified; J18.9 Pneumonia, unspecified organism; D68.9 Coagulation defect, unspecified; E87.1 Hypo-osmolality and hyponatremia; I42.0 Dilated cardiomyopathy; I11.0 Hypertensive heart disease with heart failure; R65.20 Severe sepsis without septic shock; E87.6 Hypokalemia; L03.119 Cellulitis of unspecified part of limb; E80.6 Other disorders of bilirubin metabolism; E03.9 Hypothyroidism, unspecified; I25.10 Atherosclerotic heart disease of native coronary artery without angina pectoris; F19.90 Other psychoactive substance use, unspecified, uncomplicated; K76.1 Chronic passive congestion of liver; Z68.27 Body mass index [BMI] 27.0-27.9, adult; Z87.891 Personal history of nicotine dependence
CPT/HCPCS: 36415; 36600; 71045; 76604; 76942; 80048; 80053; 80305; 81003; 82803; 82945; 83036; 83605; 83735; 83880; 84100; 84157; 84436; 84443; 84479; 84484; 85025; 85610; 85730; 87040; 87070; 87075; 87081; 87086; 87205; 87804; 88305; 88313; 88342; 89051; 93005; 93970; 94640; 99285; J1940; J2001; J2270; J2543; J3480; J7030; J7060; J7620; Q0092